=== PATIENT | female | born 1970 | race Caucasian/White ===

== ENCOUNTER 2020-09-25 07:47 | Outpatient (REF) | payer OTHER, SELFPAY ==
[2020-09-25 08:25] LABS: COVID-19 Test Negative (Negative); IDNOW Serial# 55D5AD1C
== END 2020-09-25 07:48 | disposition home or self-care (01) ==
LOC: HO.EMPCOV 07:47
PROVIDERS: PCP Internal Medicine; Visit Provider Internal Medicine
DX: Z20.828 Contact with and (suspected) exposure to other viral communicable diseases (principal)
CPT/HCPCS: 87635; C9803

== ENCOUNTER 2021-01-06 12:33 | Outpatient (REF) | payer MEDICAID, SELFPAY ==
[2021-01-06 13:54] LABS: MANUAL DIFF FLAG NO
[2021-01-06 14:03] LABS: Basophils Percent Auto 0.2 % (0-2); Eosinophils Absolute Auto 0.1 X10*3/uL (0.0-0.4); Eosinophils Percent Auto 1.1 % (0-4); Hematocrit 39.7 % (37-47); Hemoglobin 13.2 g/dl (12.0-16.0); Imm Gran Abs Auto 0.01 X10*3/uL (0.00-0.03); Imm Gran Pct Auto 0.2 % (0.0-0.4); Lymphocytes Absolute Auto 2.2 X10*3/uL (1.2-4.9); Lymphocytes Percent Auto 39.6 % (20-40); Mean Corpuscular HGB Conc 33.2 g/dl (31.0-35.0); Mean Corpuscular Hemoglobin 30.3 pg (27.0-33.0); Mean Corpuscular Volume 91.3 fL (80-98); Mean Platelet Volume 9.7 fL (9.4-12.3); Monocytes Absolute Auto 0.4 X10*3/uL (0.1-1.2); Monocytes Percent Auto 7.5 % (2-11); Neutrophils Absolute Auto 2.9 X10*3/uL (2.0-8.3); Neutrophils Percent Auto 51.4 % (45-73); Platelet Count 191 X10*3/uL (160-400); Red Blood Count 4.35 X10*6/uL (4.20-5.50); Red Cell Distribution Width 13.7 % (11.0-16.0); White Blood Count 5.6 X10*3/uL (4.8-10.8)
[2021-01-06 14:37] LABS: Alanine Aminotransferase 16 U/L (0-31); Albumin Level 4.2 g/dL (3.5-5.0); Alkaline Phosphatase 70 U/L (39-117); Anion Gap 12 (12-20); Aspartate Amino Transferase 25 U/L (5-31); Bilirubin Total 0.3 mg/dL (0.0-1.0); Blood Urea Nitrogen 11 mg/dL (9-16); Calcium 8.8 mg/dL (8.4-10.2); Carbon Dioxide 27 mmol/L (22-29); Chloride 103 mmol/L (96-108); Estimated Glomerular Filt Rate > 60; Glucose Random 74 mg/dL (60-115); Potassium 3.9 mmol/L (3.3-5.1); Sodium 138 mmol/L (135-145); Total Protein 6.4 g/dL (6.5-8.0)
[2021-01-06 15:00] LABS: Free T4 (Free Thyroxine) 1.03 ng/dL (0.71-1.85); Thyroid Stimulating Hormone 0.88 uIU/mL (0.32-4.0)
[2021-01-07 05:06] LABS: Thyroid Peroxidase Antibodies 1 IU/mL (<9)
== END 2021-01-06 12:34 | disposition home or self-care (01) ==
LOC: HO.10HDL 12:33
PROVIDERS: Visit Provider Internal Medicine
DX: E05.00 Thyrotoxicosis with diffuse goiter without thyrotoxic crisis or storm (principal); R51.9 Headache, unspecified; Q28.2 Arteriovenous malformation of cerebral vessels
CPT/HCPCS: 36415; 80053; 84439; 84443; 85025; 86376

== ENCOUNTER 2021-06-24 10:32 | Outpatient (REF) | payer MEDICAID, SELFPAY ==
[2021-06-24 13:46] LABS: Alanine Aminotransferase 14 U/L (0-31); Albumin Level 4.1 g/dL (3.5-5.0); Alkaline Phosphatase 56 U/L (39-117); Anion Gap 13 (12-20); Aspartate Amino Transferase 28 U/L (5-31); Bilirubin Total 0.5 mg/dL (0.0-1.0); Blood Urea Nitrogen 7 mg/dL (9-16); Calcium 9.3 mg/dL (8.4-10.2); Carbon Dioxide 28 mmol/L (22-29); Chloride 101 mmol/L (96-108); Estimated Glomerular Filt Rate > 60; Glucose Random 118 mg/dL (60-115); Potassium 4.4 mmol/L (3.3-5.1); Sodium 138 mmol/L (135-145); Total Protein 6.3 g/dL (6.5-8.0)
[2021-06-24 14:10] LABS: Free T4 (Free Thyroxine) 1.13 ng/dL (0.71-1.85); Thyroid Stimulating Hormone 1.16 uIU/mL (0.32-4.0); Vitamin D 25-OH Total 65.3 ng/mL (>30)
== END 2021-06-24 10:33 | disposition home or self-care (01) ==
LOC: HO.10HDL 10:32
PROVIDERS: PCP Internal Medicine; Visit Provider Internal Medicine
DX: G43.909 Migraine, unspecified, not intractable, without status migrainosus (principal); E55.9 Vitamin D deficiency, unspecified; Z86.39 Personal history of other endocrine, nutritional and metabolic disease
CPT/HCPCS: 36415; 80053; 82306; 84439; 84443

== ENCOUNTER 2022-03-02 12:39 | Outpatient (REF) | payer MEDICAID, SELFPAY ==
[2022-03-02 13:25] LABS: MANUAL DIFF FLAG NO
[2022-03-02 13:33] LABS: Basophils Percent Auto 0.2 % (0-2); Eosinophils Absolute Auto 0.1 X10*3/uL (0.0-0.4); Eosinophils Percent Auto 1.1 % (0-4); Hematocrit 39.4 % (37.0-47.0); Hemoglobin 13.2 g/dl (12.0-16.0); Imm Gran Abs Auto 0.01 X10*3/uL (0.00-0.03); Imm Gran Pct Auto 0.2 % (0.0-0.4); Lymphocytes Absolute Auto 1.2 X10*3/uL (1.2-4.9); Lymphocytes Percent Auto 27.2 % (20-40); Mean Corpuscular HGB Conc 33.5 g/dl (31.0-35.0); Mean Corpuscular Volume 89.5 fL (80.0-98.0); Mean Platelet Volume 9.3 fL (9.4-12.3); Monocytes Absolute Auto 0.5 X10*3/uL (0.1-1.2); Monocytes Percent Auto 10.4 % (2-11); Neutrophils Absolute Auto 2.7 x10*3/uL (2.0-8.3); Neutrophils Percent Auto 60.9 % (45-73); Platelet Count 172 X10*3/uL (160-400); Red Cell Distribution Width 13.3 % (11.0-16.0); White Blood Count 4.4 X10*3/uL (4.8-10.8)
[2022-03-02 13:58] LABS: Alanine Aminotransferase 10 U/L (0-31); Albumin Level 4.2 g/dL (3.5-5.0); Alkaline Phosphatase 55 U/L (39-117); Anion Gap 11 (12-20); Aspartate Amino Transferase 23 U/L (5-31); Bilirubin Total 0.2 mg/dL (0.0-1.0); Blood Urea Nitrogen 6 mg/dL (9-16); Calcium 9.3 mg/dL (8.4-10.2); Carbon Dioxide 29 mmol/L (22-29); Chloride 102 mmol/L (96-108); Cholesterol 186 mg/dL; Estimated Glomerular Filt Rate > 60; Glucose Random 112 mg/dL (60-115); Sodium 138 mmol/L (135-145); Total Protein 6.6 g/dL (6.5-8.0)
[2022-03-02 14:02] LABS: Free T4 (Free Thyroxine) 1.26 ng/dL (0.71-1.85); Thyroid Stimulating Hormone 1.34 uIU/mL (0.32-4.0)
== END 2022-03-02 12:40 | disposition home or self-care (01) ==
LOC: HO.10HDL 12:39
PROVIDERS: PCP Internal Medicine; Visit Provider Internal Medicine
DX: Z00.00 Encounter for general adult medical examination without abnormal findings (principal); E05.00 Thyrotoxicosis with diffuse goiter without thyrotoxic crisis or storm
CPT/HCPCS: 36415; 80053; 82465; 84439; 84443; 85025

== ENCOUNTER 2023-01-11 07:00 | Outpatient (REF) | payer MEDICAID, SELFPAY ==
[2023-01-11 07:10] LABS: MANUAL DIFF FLAG NO
[2023-01-11 07:34] LABS: Basophils Percent Auto 0.1 % (0-2); Eosinophils Absolute Auto 0.1 X10*3/uL (0.0-0.4); Eosinophils Percent Auto 0.9 % (0-4); Hematocrit 39.6 % (37.0-47.0); Hemoglobin 13.6 g/dl (12.0-16.0); Imm Gran Abs Auto 0.01 X10*3/uL (0.00-0.03); Imm Gran Pct Auto 0.1 % (0.0-0.4); Lymphocytes Absolute Auto 2.5 X10*3/uL (1.2-4.9); Lymphocytes Percent Auto 36.8 % (20-40); Mean Corpuscular HGB Conc 34.3 g/dl (31.0-35.0); Mean Corpuscular Hemoglobin 30.6 pg (27.0-33.0); Mean Corpuscular Volume 89.2 fL (80.0-98.0); Mean Platelet Volume 9.7 fL (9.4-12.3); Monocytes Absolute Auto 0.5 X10*3/uL (0.1-1.2); Monocytes Percent Auto 7.5 % (2-11); Neutrophils Absolute Auto 3.7 x10*3/uL (2.0-8.3); Neutrophils Percent Auto 54.6 % (45-73); Platelet Count 187 X10*3/uL (160-400); Red Blood Count 4.44 X10*6/uL (4.20-5.50); Red Cell Distribution Width 13.5 % (11.0-16.0); White Blood Count 6.8 X10*3/uL (4.8-10.8)
[2023-01-11 08:08] LABS: Alanine Aminotransferase 18 U/L (0-31); Albumin Level 4.4 g/dL (3.5-5.0); Alkaline Phosphatase 51 U/L (39-117); Anion Gap 11 (12-20); Aspartate Amino Transferase 29 U/L (5-31); Bilirubin Total 0.6 mg/dL (0.0-1.0); Blood Urea Nitrogen 11 mg/dL (9-16); Calcium 9.4 mg/dL (8.4-10.2); Carbon Dioxide 30 mmol/L (22-29); Chloride 104 mmol/L (96-108); Cholesterol 235 mg/dL; Estimated Glomerular Filt Rate > 60; Glucose Fasting 92 mg/dL (60-99); HDL Cholesterol 50 mg/dL; LDL Cholesterol Calculated 171 mg/dl; Potassium 4.2 mmol/L (3.3-5.1); Sodium 141 mmol/L (135-145); Total Protein 6.5 g/dL (6.5-8.0); Triglycerides 72 mg/dL
== END 2023-01-11 07:01 | disposition home or self-care (01) ==
LOC: HO.LAB 07:00
PROVIDERS: PCP Internal Medicine; Visit Provider Internal Medicine
DX: Z00.00 Encounter for general adult medical examination without abnormal findings (principal)
CPT/HCPCS: 36415; 80053; 80061; 85025

== ENCOUNTER 2023-01-31 20:55 | Outpatient (REF) | payer MEDICAID, SELFPAY ==
[2023-01-31 21:21] LABS: COVID-19 Test Negative (Negative); IDNOW Serial# BCCEAD1C
== END 2023-01-31 20:56 | disposition home or self-care (01) ==
LOC: HO.LAB 20:55
PROVIDERS: PCP Internal Medicine; Visit Provider Internal Medicine
DX: Z20.822 Contact with and (suspected) exposure to COVID-19 (principal)
CPT/HCPCS: 87635

== ENCOUNTER 2025-04-30 08:18 | Outpatient (AMB) | payer OTHER, SELFPAY ==
--- NOTE | 2025-04-30 08:22 | A.OFFPC_ITS ---
Vital Signs 04/30/25 08:23 Height 5 ft 5 in Weight 64.41 kg BMI 23.6 BP 112/72 Respiration 14 Pulse 73 Pulse Source Pulse Oximeter Temp 98.0 F Temp Source Temporal Artery Scan Pulse Oximetry (%) 97 Oxygen Delivery Method Room Air Intake Visit Reasons: physical Accompanied by: Self / Same As Patient Allergies No Known Allergies Allergy (Unverified 04/30/25 08:24) Medication List - Last Reconciled 04/30/25 by MAC Donnelly hydroxyzine HCl 25 mg PO BID PRN nicotine 1 patch transdermal DAILY nicotine 1 patch transdermal Q24H HPI HPI Comments History of Present Illness Details 55-year-old female with history of alcoh ol use disorder, anxiety, goiter, AVM who is a current everyday smoker presents to the office today for annual physical exam, for management of chronic conditions, and to establish care. Joeehuh-MKY-1 score 6, consistent with mild anxiety. She does use hydroxyzine as needed. She does have social supports. Would consider therapy. No significant depressive symptoms, PHQ-9 score 2. Much of her anxiety stems from the suicide of her brother AVM brain-s/p stereotactic LINAC radiosurgery for complex avm with application of stereotactic headframe in in 2020, had been following with Dr. Ferrell in Neurology and [place] [facility] She has been discharge from [facility] and recommended for 3 repeat MRI of the brain. Does report occasional headaches Goiter/thyroid nodule-nuclear med thyroid update scan showed evidence of Graves disease/hyperthyroidism with homogeneous uptake. Despite this remains euthyroid. Denies any compressive symptoms Cigarette smoking-continue smoking about 10 cigarettes on a daily basis. She is interested in quitting Alcohol use disorder-in remission, last alcohol consumption 6 years ago. Does attend and has good social supports. No other substance use. Past medical, social, surgical, family history reviewed Concerns: New nevus on right cheek that appeared 60 years ago and has been enlarging Health maintenance: Overdue for screening mammogram Overdue for colonoscopy Overdue for Pap smear ROS: General: No fevers, malaise, unintentional weight loss HEENT: No blurred vision, diplopia. No sore throat, nasal congestion, rhinorrhea, sinus pain, ear pain Neck - no adenopathy. +goiter Cardiovascular: No chest pain, palpitations, or leg edema Respiratory: No shortness of breath, wheezing, cough GI: No abdominal pain, nausea, vomiting, diarrhea, constipation, melena, hematochezia : No dysuria, hematuria, increased urinary frequency, decreased urinary output MSK: No myalgia, back pain, arthralgias Neuro: +headache. weakness, paresthesias Psych: +anxiety. No AH/VH. No SI/HI Skin: No rashes or lesions EXAM: Constitutional - Awake and Alert, No apparent distress Eyes - PERRLA, EOMI. Anicteric Nose- septum midline, nares clear, no sinus tenderness Mouth/throat- mucosa moist, tongue and uvula midline, no erythema/edema or tonsillar adenopathy. Neck-trachea midline, asymmetric thyroid R>L, witih palpable nodule upper right lobe Cardiovascular - S1S2, RRR, No edema Respiratory - Normal lung expansion, Normal respiratory effort, No respiratory distress, CTA bilaterally Gastrointestinal - NT / ND; +BS; No rebound or guarding - No CVA tenderness Extremities - no calf tenderness bilaterally, no swelling Musculoskeletal - Normal inspection, normal ROM Skin - Warm/Dry Neurological - Alert & oriented x3, CN II-XII in tact, 5/5 strength BUE and BLE Psychological - Appropriate affect PFSH Medical History (Updated 04/30/25 @ 09:07 by MAC Donnelly) Cigarette smoker Alcohol use disorder in remission Anxiety Status post radiation therapy Headache AVM (arteriovenous malformation) brain Goiter Surgical History (Updated 04/30/25 @ 08:41 by MAC Donnelly) S/P tonsillectomy H/O lumbar discectomy S/P radiation therapy > 12 wks ago Family History (Updated 04/30/25 @ 08:48 by MAC Donnelly) Mother CAD (coronary artery disease) of artery bypass graft Arterial occlusive disease Diabetes Sister Diabetes Father Metastatic cancer Questionnaire PHQ-9 Over the last 2 weeks, how often have you been bothered by any of the following problems? 1. Little interest or pleasure in doing things: more than half the days 2. Feeling down, depressed, or hopeless: not at all 3. Trouble falling or staying asleep, or sleeping too much: not at all 4. Feeling tired or having little energy: more than half the days 5. Poor appetite or overeating: not at all 6. Feeling bad about yourself - or that you are a failure or have let yourself or your family down: not at all 7. Trouble concentrating on things, such as reading the newspaper or watching television: not at all 8. Moving or speaking so slowly that other people could have noticed. Or the opposite - being so fidgety or restless that you have been moving around a lot more than usual: not at all 9. Thoughts that you would be better off or of hurting yourself in some way: not at all Total score: 4 Depression Screening Done: Yes 67874 - PHQ-9 Billing: Yes Source: Developed by Drs. Jarod Barrera, Miranda Boudreaux, Daquan Cruz and colleagues, with an educational neeta from [employer]. Thrive Questionnaire Date Thrive assessed: 04/30/25 I am a: Patient What is your living situation today?: I have a steady place to live Within the past 12 months, did the food you bought not last and you didn't have the money to get more?: Never true Within the past 12 months, did you worry whether your food would run out before you got money to buy more?: Never true Do you have trouble paying for medicines?: No Do you have trouble getting transportation to medical appointments?: No Do you have trouble paying your heating and electricity bill?: No Do you have trouble taking care of your child, family member or friend?: No Do you have trouble with day-to-day activities such as bathing, preparing meals, shopping, managing finances, etc.?: No Are you currently unemployed and looking for a job?: No Are you interested in more education?: No Please select the resources that you would like help with: None THRIVE Score: 0 NEIL-7 AMB Questionnaire NEIL-7 Date NEIL - 7 assessed: 04/30/25 Feeling nervous, anxious, or on edge: 1 = Several days Not being able to stop or control worryin = Several days Worrying too much about different things: 1 = Several days Trouble relaxin = Several days Being so restless that it is hard to sit still: 0 = Not at all Becoming easily annoyed or irritable: 1 = Several days Feeling afraid as if something awful might happen: 1 = Several days Total NEIL-7 score (0-4 normal; 5-9 mild; 10-14 moderate; 15-21 severe): 6 Source: Developed by Drs. Jarod Barrera, Miranda Boudreaux, Daquan Cruz and colleagues, with an educational neeta from [employer]. Physical exam (Primary Care) Vital Signs: Last Vital Signs Temp 98.0 F 04/30/25 08:23 Pulse 73 04/30/25 08:23 Resp 14 04/30/25 08:23 BP 112/72 04/30/25 08:23 Pulse Ox 97 04/30/25 08:23 Oxygen Delivery Method Room Air 04/30/25 08:23 BMI result Body Mass Index 23.6 PHQ-9: PHQ-9 Score PHQ-9: Total score 4 04/30/25 10:17 Thrive Assessment: Date of Thrive Assessment Date Thrive assessed 04/30/25 04/30/25 09:04 Coding Level of Care Code New Pt Level 4 (25169) New Pt Prev Care 40-64y(13276) Diagnoses Routine medical exam Z00.00 Goiter E04.9 AVM (arteriovenous malformation) brain Q28.2 Alcohol use disorder in remission F10.91 Cigarette smoker F17.210 Atypical nevus D22.9 Thyroid nodule E04.1 Additional Codes PHQ-9 - 07046 - PHQ-9 Billing: Yes ([id number]) Assessment & Plan Assessment & Plan (1) Routine medical exam: Code(s): Z00.00 - Encounter for general adult medical examination without abnormal findings Category: Medical Plan: Routine annual exam and 55-year-old female. Plan as below (2) Goiter: Code(s): E04.9 - Nontoxic goiter, unspecified Category: Medical Plan: Ultrasound of the thyroid ordered. Reviewed thyroid uptake scan from 2021. Will check TSH with reflex free T4 (3) AVM (arteriovenous malformation) brain: Comment: [facility] Code(s): Q28.2 - Arteriovenous malformation of cerebral vessels Category: Medical Plan: MRI of the brain with/without contrast for surveillance as recommended by [facility] Reviewed prior MRI brain with/without contrast from 02/20[facility] at [facility]. Reviewed notes from [facility] [place] (4) Alcohol use disorder in remission: Code(s): F10.91 - Alcohol use, unspecified, in remission Category: Medical Plan: Commended on ongoing sobriety. Continue with social supports and abstinence (5) Cigarette smoker: Code(s): F17.210 - Nicotine dependence, cigarettes, uncomplicated Category: Social Hx Plan: 15 pack-year history. No lung cancer screening indicated at this time. Smoking cessation strongly advised. Nicotine patches (6) Atypical nevus: Code(s): D22.9 - Melanocytic nevi, unspecified Plan: Referral to Dermatology (7) Thyroid nodule: Code(s): E04.1 - Nontoxic single thyroid nodule Category: Medical Plan: Ultrasound thyroid, TSH ordered Plan Routine screening labs as ordered below Screening mammogram, colonoscopy, Pap smear ordered Continue following for annual skin exams and use sun protection Annual eye exams Annual dental exams Wear seat belt in car Recommend regular exercise and healthy diet Orders: Orders Complete Blood Count Auto Diff Today Z00.00 - Encounter for general adult medic al examination without abnormal findings Liver Panel Today Z00.00 - Encounter for general adult medical examination without abnormal findings TSH reflex Free T4 Today Z00.00 - Encounter for general adult medical examination without abnormal findings MM tomosynthesis screening BI Today Z12.31 - Encounter for screening mammogram for malignant neoplasm of breast US thyroid Today E04.1 - Nontoxic single thyroid nodule, E04.9 - Nontoxic goiter, unspecified MR head/brain wo/w con Today Q28.2 - Arteriovenous malformation of cerebral vessels Basic Metabolic Panel Today Z00.00 - Encounter for general adult medical examination without abnormal findings Hemoglobin A1c Today Z00.00 - Encounter for general adult medical examination without abnormal findings Lipid Panel Today Z00.00 - Encounter for general adult medical examination without abnormal findings Vitamin D 25-OH Total Today Z00.00 - Encounter for general adult medical examination without abnormal findings Referrals FAMILY CONSUMER SCIENCE FCS TEACHER Referral C53.9 - Malignant neoplasm of cervix uteri, unspecified Dermatology Referral D22.9 - Melanocytic nevi, unspecified Gastroenterology Referral D22.9 - Melanocytic nevi, unspecified, Z12.11 - Encounter for screening for malignant neoplasm of colon Medications: New nicotine 1 patch transdermal DAILY 28 ea 0RF nicotine 1 patch transdermal Q24H 14 ea 0RF hydroxyzine HCl 25 mg PO BID PRN 180 tabs 1RF anxiety Patient Instructions: anxiety- joan
[2025-04-30 08:23] VITALS: BP 112/72; PULSE 73; RESP 14; TEMP 36.7; O2SAT 97; BMI 23.6
--- OUTSIDE RECORDS SUMMARY | 2025-04-30 08:31 | XMS_ITS | Clinical Summary ---
Author Organization [employer] Address [address] [place] [address] [address] [place] [address] Care Team Providers Care Field Service Manager Name Role Phone Unavailable Primary Care Provider Unavailabl e Allergies No known active allergies Medications hydrOXYzine HCl (Atarax) 25 MG tablet Take 25 mg by mouth 2 times daily. Active topiramate (Topamax Sprinkle) 25 MG capsule Take 25 mg by mouth 2 times daily. Active Social History Tobacco Use Types Packs/Day Years Used Date Smoking Tobacco: Every Day Cigarettes Smokeless Tobacco: Never Tobacco Cessation:Ready to Q uit: Not Asked; Counseling Given: Not Answered Comments Unknown Sex and Gender Information Value Date Recorded Sex Assigned at Female 09/12/2022 10:36 AM EDT Legal Sex Female 10:36 AM EDT Gender Identity Female 02/06/2024 1:19 PM EDT Sexual Orientation Straight 09/12/2022 10 :36 AM EDT Last Filed Vital Signs Vital Sign Reading Time Taken Comments Blood Pressure 133/69 02/21/2024 3:12 PM EDT Pulse 68 02/21/2024 3:12 PM EDT Temperature - - Respiratory Rate - - Oxygen Saturation - - Inhaled Oxygen Concentration - - Weight - - Height - - Body Mass Index - - Plan of Treatment Health Maintenance Due Date Last Done Comments CT Colonography 1972 Colonoscopy 1972 Colorectal Cancer Screening 1972 Depression Screening 1972 FIT DNA/Cologuard 1972 FIT 1972 FOBT 1972 HIV Screening 1972 SDOH Screening 1972 Sigmoidoscopy 1972 Disability Screening 1972 Alcohol/Substance Use Screening 1984 Hepatitis C Screening 1990 DTaP/Tdap/Td Vaccines (1 - Tdap) 1991 Hepatitis B Vaccines (1 of 3 - 19+ 3-dose series) 1991 Pneumococcal Vaccine: 50+ Years (1 of 2 - PCV) 1991 Pap Smear 1993 Cervical Cancer Screening 2002 HPV/Cotest 2002 Mammogram 2012 Zoster Vaccines (1 of 2) 2022 Dental X-Ray: Full Mouth 10/25/2022 10/24/2019 COVID-19 Vaccine ( - 2023-2 5 season) 2024 Dental Oral Exam 08/23/2024 02/21/2024, 10/24/2019 Dental Prophylaxis 08/23/2024 02/21/2024, 12/10/2019 Tobacco Screening 02/20/2025 02/21/2024 Dental X-Ray: Bitewings 02/21/2025 02/21/20 24, 10/24/2019 Influenza Vaccine (Season Ended) 2025 RSV Patients and Patients Aged 60 years or older (1 - 1-dose 75+ series) 2047 HIB Vaccines Aged Out No longer eligi ble based on patient's age to complete this topic HPV Vaccines Aged Out No longer eligi ble based on patient's age to complete this topic Hepatitis A Vaccines Aged Out No long er eligible based on patient's age to complete this topic IPV Vaccines Aged Out No longer eligi ble based on patient's age to complete this topic Meningococcal B Vaccine Aged Out No l onger eligible based on patient's age to complete this topic Meningococcal Vaccine Aged Out No serge neel eligible based on patient's age to complete this topic RSV under 20 months Aged Out No longe r eligible based on patient's age to complete this topic Rotavirus Vaccines Aged Out No longer eligible based on patient's age to complete this topic Procedures Procedure Name Priority Date/Time Associated Diagnosis Comments PROPHYLAXIS - ADULT Routine 02/21/2024 3 :00 PM EDT BITEWINGS - 4 RADIOGRAPHIC IMAGES Routine 02/21/2024 3:00 PM EDT PERIODIC ORAL EVALUATION - ESTABLISHED PATIENT Routine 02/21/2024 3:00 PM EDT INTRAORAL - COMPLETE SERIES OF RADIOGRAPHIC IMAGES Routine 10/24/2019 12:00 AM EST from Last 3 Months or Most Recently Relevant to Health Maintenance Insurance [address] [place] [id number] DENTAL - [facility] [address] [place] [phone] [place] [id number] [address] [place] [address] [place] [phone]
== END 2025-04-30 09:03 | disposition home or self-care (01) ==
LOC: HO.HMCHD 08:19
PROVIDERS: PCP Internal Medicine; Visit Provider Physician Assistant
DX: Z00.00 Encounter for general adult medical examination without abnormal findings (principal); E04.9 Nontoxic goiter, unspecified; Q28.2 Arteriovenous malformation of cerebral vessels; F10.91 Alcohol use, unspecified, in remission; F17.210 Nicotine dependence, cigarettes, uncomplicated; D22.9 Melanocytic nevi, unspecified; E04.1 Nontoxic single thyroid nodule

== ENCOUNTER → 2025-04-30 08:18 | Outpatient (BNVA) | payer OTHER, SELFPAY | PROVIDERS: PCP Internal Medicine; Visit Provider Physician Assistant | DX: Z00.00 Encounter for general adult medical examination without abnormal findings (principal); E04.1 Nontoxic single thyroid nodule; F10.91 Alcohol use, unspecified, in remission; D22.9 Melanocytic nevi, unspecified; F41.9 Anxiety disorder, unspecified; F17.210 Nicotine dependence, cigarettes, uncomplicated; Q28.2 Arteriovenous malformation of cerebral vessels; Z13.31 Encounter for screening for depression; Z13.30 Encounter for screening examination for mental health and behavioral disorders, unspecified | CPT/HCPCS: 96127 ==

== ENCOUNTER 2025-04-30 09:06 | Outpatient (REF) | payer OTHER, SELFPAY ==
[2025-04-30 09:55] LABS: MANUAL DIFF FLAG NO
[2025-04-30 10:00] LABS: Basophils Percent Auto 0.2 % (0-2); Eosinophils Absolute Auto 0.1 X10*3/uL (0.0-0.4); Eosinophils Percent Auto 1.1 % (0-4); Hematocrit 43.3 % (37.0-47.0); Hemoglobin 14.5 g/dl (12.0-16.0); Imm Gran Abs Auto 0.02 X10*3/uL (0.00-0.03); Imm Gran Pct Auto 0.3 % (0.0-0.4); Lymphocytes Absolute Auto 2.3 X10*3/uL (1.2-4.9); Lymphocytes Percent Auto 36.5 % (20-40); Mean Corpuscular HGB Conc 33.5 g/dl (31.0-35.0); Mean Corpuscular Hemoglobin 30.7 pg (27.0-33.0); Mean Corpuscular Volume 91.7 fL (80.0-98.0); Mean Platelet Volume 10.1 fL (9.4-12.3); Monocytes Absolute Auto 0.4 X10*3/uL (0.1-1.2); Monocytes Percent Auto 6.6 % (2-11); Neutrophils Absolute Auto 3.5 x10*3/uL (2.0-8.3); Neutrophils Percent Auto 55.3 % (45-73); Platelet Count 200 X10*3/uL (160-400); Red Blood Count 4.72 X10*6/uL (4.20-5.50); Red Cell Distribution Width 13.5 % (11.0-16.0); White Blood Count 6.3 X10*3/uL (4.8-10.8)
[2025-04-30 10:16] LABS: Estimated Average Glucose 108 mg/dL; Hemoglobin A1c % 5.4 % (<6.0)
[2025-04-30 10:30] LABS: Alanine Aminotransferase 26 U/L (0-31); Albumin Level 4.7 g/dL (3.5-5.0); Alkaline Phosphatase 57 U/L (39-117); Anion Gap 10 (12-20); Aspartate Amino Transferase 38 U/L (5-31); Bilirubin Direct 0.2 mg/dL (0.0-0.5); Bilirubin Total 0.6 mg/dL (0.0-1.0); Blood Urea Nitrogen 14 mg/dL (9-16); Calcium 9.7 mg/dL (8.4-10.2); Carbon Dioxide 29 mmol/L (22-29); Chloride 106 mmol/L (96-108); Cholesterol 223 mg/dL (<200); Estimated Glomerular Filt Rate > 60; Glucose Random 102 mg/dL (60-115); HDL Cholesterol 46 mg/dL (>40); LDL Cholesterol Calculated 156 mg/dL (<100); Potassium 4.3 mmol/L (3.3-5.1); Sodium 141 mmol/L (135-145); Total Protein 7.3 g/dL (6.5-8.0); Triglycerides 109 mg/dL (<150)
[2025-04-30 10:51] LABS: TSH reflex Free T4 1.03 uIU/mL (0.32-4.0); Vitamin D 25-OH Total 47.3 ng/mL (>30)
== END 2025-04-30 09:07 | disposition home or self-care (01) ==
LOC: HO.10HDL 09:06
PROVIDERS: Visit Provider Physician Assistant
DX: Z00.00 Encounter for general adult medical examination without abnormal findings (principal); Z13.0 Encounter for screening for diseases of the blood and blood-forming organs and certain disorders involving the immune mechanism; Z13.29 Encounter for screening for other suspected endocrine disorder; Z13.1 Encounter for screening for diabetes mellitus; Z13.220 Encounter for screening for lipoid disorders
CPT/HCPCS: 36415; 80048; 80061; 80076; 82306; 83036; 84443; 85025

== ENCOUNTER 2025-05-19 11:56 | Outpatient (REF) | payer OTHER, SELFPAY ==
--- OUTSIDE RECORDS SUMMARY | 2025-05-19 12:48 | XMS_ITS | Clinical Summary ---
Author Organization [facility] Address [address] [place] [address] 7[address] [place] [address] Care Team Providers Care Armoured Corps Officer Name Role Phone Unavailable Primary Care Provider [...] Bitewings 02/21/2025 02/21/20 24, 10/24/2019 Influenza Vaccine (#1) 2025 RSV Patients and Patients Aged 60 [...] Recently Relevant to Health Maintenance Insurance [address] [place] [id number] DENTAL - [facility] [address] [place] [phone] [place] [address] [address] [address] [place] [address] [place] [phone]
== END 2025-05-19 11:57 | disposition home or self-care (01) ==
LOC: HO.MAMMO 11:56
PROVIDERS: PCP Physician Assistant; Visit Provider Physician Assistant
DX: Z12.31 Encounter for screening mammogram for malignant neoplasm of breast (principal)
CPT/HCPCS: 77063; 77067

== ENCOUNTER → 2025-05-19 12:00 | Outpatient (BNV) | payer OTHER, SELFPAY | PROVIDERS: PCP Physician Assistant; Visit Provider Radiology Body Imaging | DX: Z12.31 Encounter for screening mammogram for malignant neoplasm of breast (principal) | CPT/HCPCS: 77063; 77067 ==

== ENCOUNTER 2025-05-28 15:48 | Outpatient (REF) | payer OTHER, SELFPAY ==
--- NOTE | ~2025-05-28 | MR_ITS ---
EXAMINATION: MR ANGIOGRAPHY BRAIN WITHOUT AND WITH CONTRAST CLINICAL INFORMATION: Arteriovenous malformation of cerebral vessels; right frontoparietal AVM status post LINAC stereotactic radiosurgery in 2020. COMPARISON: Outside enhanced brain MRI from [facility] 03/02/2022. CT angiography head from [facility] 03/10/2024. TECHNIQUE: 3-D [id number] imaging and postcontrast imaging of the major arterial intracranial vasculature was performed, with postprocessing multiplanar reformatted and MIPPED imaging. Examination performed on 1.5 Micheline Siemens high-field unit. FINDINGS: The previously identified small AVM at the right lateral frontoparietal junction is again identified, however nearly imperceptible as compared with the prior MRI examination. The nidus currently measures 2 x 2 mm, previously measuring 3 x 5 mm (series 32, image 206). There are 2 mildly prominent associated cortical draining veins immediately adjacent to this region. These are less prominent than seen on the previous exam. There is no additional aneurysm or AVM identified. Normal flow related enhancement is present in the anterior and posterior circulation. There is no significant stenosis, flow gap, occlusion, or evidence of dissection. The posterior communicating arteries are present and patent bilaterally. Anterior communicating artery is normal. The right vertebral artery is dominant. The left vertebral artery appears to terminate as a PICA branch. The major cortical and dural venous sinuses are patent. MR/MR angio head wo/w con IMPRESSION: 1. Redemonstration of a tiny AVM in the right lateral frontoparietal junction, with nidus currently measuring approximately 2 x 2 mm, previously 3 x 5 mm in 2021. There are 2 associated mildly prominent draining cortical veins again noted. 2. There is no evidence of additional aneurysm or AVM. 3. The remainder of the examination is normal, with normal anatomical variation as discussed. Electronically signed by: Jose Carlos Salinas MD 05/30/2025 02:51 PM EDT
--- OUTSIDE RECORDS SUMMARY | 2025-05-28 15:50 | XMS_ITS | Clinical Summary ---
Author Organization [employer] Address [address] [place] [address] [address] [place] [address] Care Team Providers Care Computer Software Engineer Name Role Phone Unavailable Primary Care Provider [...] Recently Relevant to Health Maintenance Insurance [address] [place] [id number] DENTAL - [facility] [address] [place] [phone] [place] [phone] [address] [place] [address] [place] [phone]
== END 2025-05-28 15:49 | disposition home or self-care (01) ==
LOC: HO.MRI 15:48
PROVIDERS: PCP Physician Assistant; Visit Provider Physician Assistant
DX: Q28.2 Arteriovenous malformation of cerebral vessels (principal)
CPT/HCPCS: 70546; A9585

== ENCOUNTER → 2025-05-28 15:56 | Outpatient (BNV) | payer OTHER, SELFPAY | PROVIDERS: PCP Physician Assistant; Visit Provider Radiology Diagnostic Radiology | DX: Q28.2 Arteriovenous malformation of cerebral vessels (principal) | CPT/HCPCS: 70546 ==

== ENCOUNTER 2025-05-30 12:49 | Outpatient (REF) | payer OTHER, SELFPAY ==
--- OUTSIDE RECORDS SUMMARY | 2025-05-30 12:53 | XMS_ITS | Clinical Summary ---
Author Organization [facility] Address [address] [place] [address] 7t [place] [address] Care Team Providers Care Liner Worker Name Role Phone Unavailable Primary Care Provider [...] Recently Relevant to Health Maintenance Insurance [address] [place] [phone] DENTAL - [facility] [address] [place] [phone] [place] [address] [address] [place] [address] [place] [phone]
--- OUTSIDE RECORDS SUMMARY | 2025-05-30 12:53 | XMS_ITS | Encounter Summary ---
Author Organization [facility] Address [address] [place] [address] Phone Care Team Providers Care Food Product Inspector Name Role Phone Jm Heredia MD Primary Care Provider Encounter Details Date Type Department Care Team (Late st Contact Info) Description 12/01/2020 Procedure Pass [facility] [address] [place] [address] Social History Tobacco Use Types Packs/Day Years Used Date Smoking Tobacco: Every Day Cigarettes 0.5 25 Smokeless Tobacco: Never Comments:has patch Alcohol Use Standard Drinks/Week Comments Never 0 (1 standard drink = 0.6 oz pur e alcohol) Comments No Sex and Gender Information Value Date Recorded Sex Assigned at Not on file Legal Sex Female 11:16 AM EST Gender Identity Not on file Sexual Orientation Not on file documented as of this encounter Plan of Treatment Not on file documented as of this encounter Visit Diagnoses Not on filedocumented in this encounter Care Teams Food Product Inspector Relationship Specialty Start Date End Date Jm Heredia MD [address] [place] [address] [place] [address] PCP - General Internal Medicine 10/06/20 documented as of this encounter Additional Source Comments The information contained in this document represents components of the legal health record. It is not the complete legal health record.[facility]
== END 2025-05-30 12:50 | disposition home or self-care (01) ==
LOC: HO.MRI 12:49
PROVIDERS: PCP Physician Assistant; Visit Provider Physician Assistant
DX: Z53.8 Procedure and treatment not carried out for other reasons (principal)
CPT/HCPCS: A9585

== ENCOUNTER 2025-06-05 14:13 | Outpatient (REF) | payer OTHER, SELFPAY ==
--- NOTE | ~2025-06-05 | US_ITS ---
EXAMINATION: US THYROID HISTORY: E04.9 - Nontoxic goiter, unspecified TECHNIQUE: Real-time grayscale ultrasound imaging was performed and images were reviewed. COMPARISON: There are no prior studies available for comparison. FINDINGS: SIZE: The right thyroid lobe measures 4.5 x 1.5 x 1.4 cm. The left thyroid lobe measures 4.8 x 1.5 x 1.4 cm. The isthmus measures 1 mm. FLOW: Flow to the gland is normal. ECHOGENICITY: The echotexture of the gland is homogeneous. NODULES: Subcentimeter nodules are noted bilaterally as described below: Nodule #: 1 Location: Right upper pole measuring 6 x 4 x 6 mm. Shape: Wider than tall (0 points) Margins: Ill-defined (0 points) Echotexture: Indeterminate (1 point) Composition: Mixed (1 point) Calcifications: Comet tail (0 points) Total points: 2 TIRADS: TR2: Not suspicious Nodule #: 2 Location: Midportion of the right thyroid lobe measuring 3 x 4 x 3 mm. Shape: Taller than wide (3 points) Margins: Irregular (2 points) Echotexture: Very hypoechoic (3 points) Composition: Solid (2 points) Calcifications: None (0 points) Total points: 10 TIRADS: TR5: Highly suspicious. Nodule #: 3 Location: Midportion of the left thyroid lobe measuring 3 x 2 x 3 mm. Shape: Wider than tall (0 points) Margins: Ill-defined (0 points) Echotexture: Indeterminate (1 point) Composition: Mixed (1 point) Calcifications: Comet tail (0 points) Total points: 2 TIRADS: TR2: Not suspicious US/US thyroid IMPRESSION: 3 x 4 x 3 mm highly suspicious nodule in the midportion of the right thyroid lobe. Follow-up is recommended to document stability. ACR TI-RADS Guidelines TR1 (0 points): Benign. No follow-up or biopsy required TR2 (2 points): Not Suspicious. No biopsy or follow up indicated TR3 (3 points): Mildly Suspicious. FNA if >= 2.5 cm, Follow if >= 1.5 cm TR4 (4-6 points): Moderately Suspicious. FNA if >= 1.5 cm, Follow if >= 1.0 cm TR5 (>=7 points): Highly Suspicious. FNA if >= 1.0 cm, Follow if >= 0.5 cm Electronically signed by: Jarod Hess MD 06/05/2025 03:12 PM EDT
--- OUTSIDE RECORDS SUMMARY | 2025-06-05 14:16 | XMS_ITS | Encounter Summary ---
Author Organization [facility] Address [address] [place] [address] Phone Care Team Providers Care Loader Operator Name Role Phone Jm Heredia MD Primary Care Provider Encounter Details Date Type Department Care Team (Late st Contact Info) Description 12/01/2020 Procedure Pass [facility] [address] [place] [address] Social History Tobacco Use Types [...] on filedocumented in this encounter Care Teams Loader Operator Relationship Specialty Start Date End Date Jm Heredia MD [address] [place] [address] [place] [address] PCP - General Internal Medicine 10/06/20 documented as of this encounter Additional Source Comments The information contained in this document represents components of the legal health record. It is not the complete legal health record.[facility]
--- OUTSIDE RECORDS SUMMARY | 2025-06-05 14:16 | XMS_ITS | Clinical Summary ---
Author Organization [employer] Address [address] [place] [address] [address] [place] [address] Care Team Providers Care Supervisor Machine Workers Name Role Phone Unavailable Primary Care Provider [...] Recently Relevant to Health Maintenance Insurance [address] [place] [id number] DENTAL - [facility] [address] [place] [phone] [place] [id number] [address] [place] [address] [place] [phone]
== END 2025-06-05 14:14 | disposition home or self-care (01) ==
LOC: HO.US 14:13
PROVIDERS: PCP Physician Assistant; Visit Provider Physician Assistant
DX: E04.9 Nontoxic goiter, unspecified (principal); E04.1 Nontoxic single thyroid nodule
CPT/HCPCS: 76536

== ENCOUNTER → 2025-06-05 14:16 | Outpatient (BNV) | payer OTHER, SELFPAY | PROVIDERS: PCP Physician Assistant; Visit Provider Radiology Diagnostic Radiology | DX: E04.1 Nontoxic single thyroid nodule (principal) | CPT/HCPCS: 76536 ==

== ENCOUNTER 2025-08-11 12:00 | Outpatient (AMB) | payer OTHER, SELFPAY ==
--- NOTE | 2025-08-11 12:02 | A.OFFVIS_ITS ---
Vital Signs 08/11/25 12:03 Height 5 ft 5 in Weight 143 lb BMI 23.8 BP 134/56 L Blood Pressure Location Rt brachial Position Sitting Pulse 66 Pulse Source Pulse Oximeter Pulse Oximetry (%) 100 Oxygen Delivery Method Room Air Intake Visit Reasons: Colonoscopy Screening Intake Note: New pt for initial colo screening. CC: C.O. intermittent episodes of constipation w/o evidence of any rectal bleeding. No additional sx or concerns at this time. Eligibility Services Representative Required: No Accompanied by: Self / Same As Patient Allergies No Known Allergies Allergy (Unverified 08/11/25 12:03) HPI HPI Colonoscopy Screening: Details: 55 year old? female with past medical history of thyroid nodule, brain AVM, tobacco use is here today for pre colonoscopy screening.? Patient was sent to us by her PCP.? This is her first colonoscopy screening.? Patient denies any gastrointestinal symptoms in the past or at present.? However patient does admit occasional constipation depending on what she eats and how much fluid does she drink. Denies melena, hematochezia, unintentional weight loss or ribbon like stools. Denies any personal or family history of gastrointestinal disease, colon polyps, or CRC.? Denies history of difficulty with sedation or anesthesia in the past.? Negative for history of sleep apnea.? Denies any history of cardiac, renal, pulmonary, or hepatic disease.?? No history of infectious? diseases like hepatitis A, B, C, HIV or tuberculosis.? Patient is not on any anticoagulation [facility] Medical History Cigarette smoker Alcohol use disorder in remission Anxiety Status post radiation therapy Headache AVM (arteriovenous malformation) brain Goiter Surgical History S/P tonsillectomy H/O lumbar discectomy S/P radiation therapy > 12 wks ago Family History Mother CAD (coronary artery disease) of artery bypass graft Arterial occlusive disease Diabetes Sister Diabetes Father Metastatic cancer Review of Systems Const Denies weight gain and Denies weight loss ENT Reports no additional complaints, Denies dysphagia and Denies odynophagia Card Reports no additional complaints Resp Reports no additional complaints GI Denies abdominal pain, Denies belching, Denies melena, Denies bloating, Denies change in bowel habits, Denies dysphagia, Denies excessive flatus, Denies dyspepsia, Denies heartburn, Denies diarrhea, Denies loose stools, Denies nausea, Denies odynophagia and Denies vomiting Musc Reports no additional complaints Neuro Reports no additional complaints Psych Reports no additional complaints Endo Reports no additional complaints Physical Exam Vital Signs: Last Vital Signs Pulse 66 08/11/25 12:03 BP 134/56 L 08/11/25 12:03 Pulse Ox 100 08/11/25 12:03 Oxygen Delivery Method Room Air 08/11/25 12:03 BMI result Body Mass Index 23.8 Const General: healthy appearing, no acute distress and well developed Nutritional Appearance: well nourished Orientation/consciousness: patient oriented x3 Resp Effort & Inspection: normal respiratory effort, able to speak in complete sentences, no tracheal deviation and symmetric chest movement Auscultation: clear to auscultation bilaterally Cardio Rate: regular rate GI Inspection: Yes normal to inspection and No distended Palpation (GI): Soft to palpation, not firm, nontender and No hepatosplenomegaly present Auscultation: normal bowel sounds General: Yes no CVA tenderness Back/Spine/Pelvis Back: no CVA tenderness Skin General skin exam: elasticity normal, turgor normal and dry skin Neuro General: patient oriented x3 Psych Appearance: grossly normal Mental Status: mental status grossly normal Assessment & Plan Assessment & Plan (1) Screen for colon cancer: Code(s): Z12.11 - Encounter for screening for malignant neoplasm of colon Plan Patient denies any cardiac or respiratory symptoms.? Occasional constipation depending on diet. Increase fluid intake and activity to promote better bowel motility. Denies any issues with anesthesia in the past.? Denies any history of sleep apnea.? No history infectious diseases in the past or present.? Not on any anticoagulation therapy.? No family or personal history of colon cancer or polyps.? Patient denies melena, hematochezia, unintentional weight loss or ribbon like stools.? Discussed at length the pre-procedure,? prep, diet & medications as well as what to expect prior, during and after the procedure.?? Stressed the importance of good bowel prep.? Recommended the use of Vaseline or Calmoseptine OTC & baby wipes with bowel movements to promote comfort.? ?Patient verbalizes understanding and agrees to plan of care.? She was given the opportunity to ask questions and all questions answered.? We will see her after the procedure.? Orders: Referrals GI Procedure Notification Z12.11 - Encounter for screening for malignant neoplasm of colon Medications: New polyethylene glycol 3350 (Miralax) As directed by gastroenterology department at [facility] 238 grams PO ONCE 238 grams 0RF Z12.11 - Encounter for screening for malignant neoplasm of colon bisacodyl (Dulcolax (bisacodyl)) take 4 tabs at noon the day before your colonoscopy 20 mg (4 x 5 mg) PO ONCE 4 tabs 0RF constipation 1 day Z12.11 - Encounter for screening for malignant n eoplasm of colon Coding Level of Care Code New Pt Level 3 (10897) Diagnoses Screen for colon cancer Z12.11 Time Spent (min) 40 Comment 30 minutes spent with patient and additional 10 minutes spent reviewing her records
[2025-08-11 12:03] VITALS: BP 134/56; PULSE 66; O2SAT 100; BMI 23.8
== END 2025-08-11 12:54 | disposition home or self-care (01) ==
LOC: HO.HGI 12:00
PROVIDERS: PCP Physician Assistant; Visit Provider Nurse Practitioner Family
DX: Z01.818 Encounter for other preprocedural examination (principal); Z12.11 Encounter for screening for malignant neoplasm of colon
CPT/HCPCS: S0285

== ENCOUNTER 2025-09-05 12:45 | Outpatient (REF) | payer OTHER, SELFPAY ==
[2025-09-06 03:28] LABS: Bacterial Vaginosis PCR POSITIVE (Negative); Candida Group PCR NOT DETECTED (Not Detect); Candida glab krusei PCR NOT DETECTED (Not Detect); Trichomonas vaginalis PCR NOT DETECTED (Not Detect)
[2025-09-06 03:58] LABS: CT PCR NOT DETECTED (Not Detect.); NG PCR NOT DETECTED (Not Detect.)
== END 2025-09-05 12:46 | disposition home or self-care (01) ==
LOC: HO.LNP 12:45
PROVIDERS: PCP Physician Assistant; Visit Provider Advanced Practice Midwife
DX: Z01.419 Encounter for gynecological examination (general) (routine) without abnormal findings (principal); Z20.2 Contact with and (suspected) exposure to infections with a predominantly sexual mode of transmission; F17.210 Nicotine dependence, cigarettes, uncomplicated; Z87.42 Personal history of other diseases of the female genital tract; Z98.51 Tubal ligation status
CPT/HCPCS: 81515; 87491; 87591; 87626; 88175

== ENCOUNTER 2025-09-05 12:45 | Outpatient (AMB) | payer OTHER, SELFPAY ==
[2025-09-05 12:49] VITALS: BP 130/68; BMI 24.6
--- NOTE | 2025-09-05 12:49 | MHC.OFFVIS ---
Vital Signs 09/05/25 12:49 Height 5 ft 5 in Weight 148 lb BMI 24.6 BP 130/68 Blood Pressure Location Rt brachial Position Sitting Intake Visit Reasons: WELLNESS PROGRAM MANAGER annual exam/Internal Referral Intake Note: here for Cancer Registry Coordinator annual . Last Pap smear was in [place] in 2019 Distilling Department Supervisor Required: No Information Interpreted: non-clinical & clinical Petroleum Plant Operator: Petroleum Plant Operator Present (Massiel) Accompanied by: Self / Same As Patient Allergies No Known Allergies Allergy (Unverified 09/05/25 12:52) Medication List - Last Reconciled 09/05/25 by Afua Mitchell LPN bisacodyl (Dulcolax (bisacodyl)) 20 mg (4 x 5 mg) PO ONCE 1 day hydroxyzine HCl 25 mg PO BID PRN polyethylene glycol 3350 (Miralax) 238 grams PO ONCE Is last menstrual period known: No HPI HPI WELLNESS PROGRAM MANAGER annual exam/Internal Referral: Details: Patient is here for flake or shred roll operator annual exam she has a history of cancers lesions on her cervix years ago and she needed to be delivered early and had some sort of treatment since believes they were normal since though her last Pap smear was in 2019 in [place]. She is postmenopausal not sexually active at the moment but open the staying along with the Pap smear. She is a smoker. She recall seeing somebody here and being given some transdermal patches to help with hot flashes that were hormonal in 2015 but did not do use them very long. 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 She is up-to-date on her mammograms she has been undergoing a dermatology workup and we will be having Mohs surgery for a lesion on her face coming up soon. [facility] Medical History (Updated 09/05/25 @ 14:01 by Antoinette Yen CNM) Cigarette smoker Alcohol use disorder in remission Anxiety Headache AVM (arteriovenous malformation) brain Goiter Surgical History (Updated 09/05/25 @ 13:04 by Afua Mitchell LPN) History of bilateral tubal ligation H/O cone biopsy of cervix Status post radiation therapy S/P tonsillectomy H/O lumbar discectomy S/P radiation therapy > 12 wks ago Family History Mother CAD (coronary artery disease) of artery bypass graft Arterial occlusive disease Diabetes Sister Diabetes Father Metastatic cancer Social History (Updated 09/05/25 @ 12:58 by Afua Mithcell LPN) Housing: Apartment Alcohol intake: former Patient Tobacco Use Status: Current everyday Tobacco user Cigarettes Per Day: 9 Years Smoked: 29 years service: No Current occupational status: employed 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 Female Reproductive History Menstrual Age of Menarche: 13 Date of last menstrual period: 09/05/15 control method: permanent sterilization Menopause type: natural Age of menopause: 45 Total pregnancies: 5 Number of Living Children: 3 Ab induced: 1 Ectopics: 1 Date of last pap smear: 09/05/19 History of abnormal pap smear: Yes (In [place] had cone Biopsy Non Invasive) Date of Mammogram: 05/19/25 History of abnormal mammogram: No Physical Exam Vital Signs: Last Vital Signs BP 130/68 09/05/25 12:49 BMI result Body Mass Index 24.6 Const General: healthy appearing, comfortable, no acute distress, well developed and alert Nutritional Appearance: average body habitus Orientation/consciousness: patient oriented x3 Limitations: no limitations HEENT Head: Yes normocephalic Neck Neck: Yes normal visual inspection Chest Chest palpation & inspection: normal inspection of the chest Breast/axilla inspection: normal inspection of the breasts and normal inspection of the axillae Breast/axilla palpation: normal palpation of the breasts and normal palpation of the axillae Resp Effort & Inspection: normal respiratory effort GI Inspection: Yes normal to inspection, No Abdominal wall edema and No distended Palpation (GI): Soft to palpation and nontender Other: External exam within normal limits vagina pink and moist atrophic changes evident cervix appears very scarred in appearance similar to a vaginal cuff. [place] there is a little bit of a white discharge testing for organisms done. Pap smear taken cervix is very flattened against vaginal apex. Uterus difficult to feel but not enlarged nontender adnexa nontender bladder is full patient has good muscle tone. General: Yes bladder normal to palpation External Female Exam: normal external appearance and normal appearance of the urethra Speculum Exam - Vagina: normal appearance of the vagina, normal palpation and normal vaginal discharge Speculum Exam - Cervix: normal appearance of the cervix, normal palpation and nontender Bimanual exam- vagina & uterus: normal bimanual exam, normal palpation, uterine size normal, bladder normal to palpation, consistency normal, normal palpation, uterine mobility normal, uterine shape normal, No Cervical tenderness present, non-tender and no cervical motion tenderness Bimanual Exam- Adnexa, other: normal adnexae, no masses, normal and No adnexal tenderness Neuro General: patient oriented x3 Assessment & Plan Assessment & Plan (1) Well woman exam with routine gynecological exam: Code(s): Z01.419 - Encounter for gynecological examination (general) (routine) without abnormal findings Category: Medical (2) Hx of abnormal cervical Pap smear: Comment: History of cervical cancer over 20 years ago with various procedures in [place]. Reportedly normal after that last Pap 2019. Code(s): Z87.42 - Personal history of other diseases of the female genital tract Category: Medical (3) Cigarette smoker: Code(s): F17.210 - Nicotine dependence, cigarettes, uncomplicated Category: Social Hx (4) Screen for sexually transmitted diseases: Code(s): Z11.3 - Encounter for screening for infections with a predominantly sexual mode of transmission Category: Medical Plan -----Discussed in this visit the following: healthy balanced diet, regular and consistent exercise, getting recommended health screens, doing the best she can for her particular health concerns, kegel exercises, pap smear screening and followup recommendations, mammography screening and SBE, normal changes in cycles in her life stage--- . Reviewed her other health concerns and her follow-up that she is getting. Pap smear was done testing for STIs and other organisms done we will await results. She is up-to-date on her other screens and is following up with all of her specialists and PCC. Orders: Orders CT NG by PCR Vag/Cerv Today Z11.3 - Encounter for screening for infections with a predominantly sexual mode of transmission Bacterial Vaginosis Panel Today Z11.3 - Encounter for screening for infections with a predominantly sexual mode of transmission Pap Smear Today Z00.00 - Encounter for general adult medical examination without abnormal findings HPV High risk Today Z00.00 - Encounter for general adult medical examination without abnormal findings Coding Level of Care Code New Pt Prev Care 40-64y(57250) Diagnoses Well woman exam with routine gynecological exam Z01.419 Hx of abnormal cervical Pap smear Z87.42 Cigarette smoker F17.210 Screen for sexually transmitted diseases Z11.3
--- OUTSIDE RECORDS SUMMARY | 2025-09-05 14:41 | XMS_ITS | Encounter Summary ---
Author Organization [facility] Address [address] [place] [address] Phone Care Team Providers Care Histopathology Technician Name Role Phone Jm Heredia MD Primary Care Provider Encounter Details Date Type Department Care Team (Late st Contact Info) Description 12/15/2020 Procedure Pass [facility] IMG [id number] MG [address] [place] [address] Social History Tobacco Use Types Packs/Day Years [...] on filedocumented in this encounter Care Teams Histopathology Technician Relationship Specialty Start Date End Date Jm Heredia MD [address] [place] [address] [place] [id number] PCP - General Internal Medicine 10/06/20 documented as of this encounter Additional Source Comments The information contained in this document represents components of the legal health record. It is not the complete legal health record.[facility]
--- OUTSIDE RECORDS SUMMARY | 2025-09-05 14:41 | XMS_ITS | Clinical Summary ---
Author Organization [employer] Address [address] [place] [address] Care Team Providers Care Clinic Coordinator Name Role Phone Unavailable Primary Care Provider Unavailabl e Allergies No known active allergies Medications hydrOXYzine HCl (Atarax) 25 MG tablet Take 25 mg by mouth 2 times daily. Active topiramate (Topamax Sprinkle) 25 MG capsule Take 25 mg by mouth 2 times daily. Active Encounters Date Type Department Care Team Description 08/12/2025 8:00 AM EDT Office Visit [facility] [address] [place] [id number] Ciera Greer 08/07/2025 Travel from Last 3 Months Social History Tobacco Use Types Packs/Day Years [...] Sign Reading Time Taken Comments Blood Pressure 130/76 08/12/2025 8:14 AM EDT Pulse 69 08/12/2025 8:14 AM EDT Temperature - - Respiratory Rate - - Oxygen Saturation - - Inhaled Oxygen Concentration - - Weight - - Height - - Body Mass Index - - Plan of Treatment Health Maintenance Due Date Last Done Comments CT Colonography 1972 Colonoscopy 1972 Colorectal Cancer Screening 1972 Depression Screening 1972 FIT DNA/Cologuard 1972 FIT 1972 FOBT 1972 HIV Screening 1972 Lipid Panel 1972 SDOH Screening 1972 Sigmoidoscopy 1972 Disability Screening 1972 Alcohol/Substance Use Screening 1984 Hepatitis C Screening 1990 DTaP/Tdap/Td Vaccines (1 - Tdap) 1991 Hepatitis B Vaccines (1 of 3 - 19+ 3-dose series) 1991 Pneumococcal Vaccine: 50+ Years (1 of 2 - PCV) 1991 Pap Smear 1993 Cervical Cancer Screening 2002 HPV/Cotest 2002 Mammogram 2012 Zoster Vaccines (1 of 2) 2022 Dental Prophylaxis 08/23/2024 02/21/2024, 12/10/2019 COVID-19 Vaccine (1 - 2023-2 5 season) 2025 Influenza Vaccine (#1) 2025 Dental Oral Exam 02/10/2026 08/12/2025, 02/21/2024, 10/24/2019 Tobacco Screening 08/12/2026 08/12/2025 Dental X-Ray: Bitewings 08/13/2026 08/12/20 25, 02/21/2024, 10/24/2019 Dental X-Ray: Full Mouth 08/13/2028 025, 10/24/2019 RSV Patients and Patients Aged 60 years [...] Procedure Name Priority Date/Time Associated Diagnosis Comments PERIODIC ORAL EVALUATION - ESTABLISHED PATIENT Routine 08/12/2025 8:00 AM EDT INTRAORAL - COMPLETE SERIES OF RADIOGRAPHIC IMAGES Routine 08/12/2025 8:00 AM EDT PROPHYLAXIS - ADULT Routine 02/21/2024 3 :00 PM EDT from Last 3 Months or Most Recently Relevant to Health Maintenance Insurance DENTAL - [facility] Member Subscriber Plan / Payer ( fective 2024-Present) Name:Alejandra Stricklandkrys Nelson Relation to Subscriber:Self Name:Lashon Strickland Payer ID:Not on file /[id number] Type:Not on file Address: [address] DENTAL [facility] [address] [place] [id number]
--- OUTSIDE RECORDS SUMMARY | 2025-09-05 14:41 | XMS_ITS | Encounter Summary ---
Author Organization [facility] Address [address] [place] [address] Care Team Providers Care Manufacturing Project Manager Name Role Phone Unavailable Primary Care Provider Unavailabl e Encounter Details Date Type Department Care Team (Latest Contact Info) Description 12/10/2019 Abstract [facility] CONVERSIONS Dental, Provider, DDS Social History Tobacco Use Types Packs/Day Years Used Date Smoking Tobacco: Never Assessed Comments Unknown Sex and Gender Information Value Date Recorded Sex Assigned at Female 09/12/2022 10:36 AM EDT Legal Sex Female 10:36 AM EDT Gender Identity Female 02/06/2024 1:19 PM EDT Sexual Orientation Straight 09/12/2022 10 :36 AM EDT documented as of this encounter Plan of Treatment Not on file documented as of this encounter Visit Diagnoses Not on filedocumented in this encounter
--- OUTSIDE RECORDS SUMMARY | 2025-09-05 14:41 | XMS_ITS | Encounter Summary ---
Author Organization [facility] Address [address] [place] [address] Phone Care Team Providers Care Peach Grower Name Role Phone Jm Heredia MD Primary Care Provider Encounter Details Date Type Department Care Team (Late st Contact Info) Description 11/27/2020 Prep for Surgery [facility] [address], [address] [place] [address] Nenita Hernandez QUANTITATIVE ANALYST [address] [place] [address] [email or web address] Social History Tobacco Use Types Packs/Day Years Used Date Smoking Tobacco: Every Day Cigarettes 0.5 25 Smokeless Tobacco: Never Comments:has patch Alcohol Use Standard Drinks/Week Comments Never 0 (1 standard drink = 0.6 oz pur e alcohol) Comments Unknown Sex and Gender Information Value Date Recorded Sex Assigned at Not on file Legal Sex Female 11:16 AM EST Gender Identity Not on file Sexual Orientation Not on file documented as of this encounter Functional Status documented as of this encounter Plan of Treatment Not on file documented as of this encounter Visit Diagnoses Not on filedocumented in this encounter Care Teams Peach Grower Relationship Specialty Start Date End Date Jm Heredia MD [address] [place] [address] [place] [address] PCP - General Internal Medicine 10/06/20 documented as of this encounter Additional Source Comments The information contained in this document represents components of the legal health record. It is not the complete legal health record.[facility]
--- OUTSIDE RECORDS SUMMARY | 2025-09-05 14:41 | XMS_ITS | Encounter Summary ---
Author Organization [facility] Address [address] [place] [address] Phone Care Team Providers Care Appliances Sample Maker Name Role Phone Jm Heredia MD Primary Care Provider Encounter Details Date Type Department Care Team (Late st Contact Info) Description 12/03/2020 Procedure Pass [facility], [facility] [address] 2nd [place] [address] Social History Tobacco Use Types Packs/Day Years [...] on filedocumented in this encounter Care Teams Appliances Sample Maker Relationship Specialty Start Date End Date Jm Heredia MD [address] [place] [address] [place] [id number] PCP - General Internal Medicine 10/06/20 documented as of this encounter Additional Source Comments The information contained in this document represents components of the legal health record. It is not the complete legal health record.[facility]
--- OUTSIDE RECORDS SUMMARY | 2025-09-05 14:41 | XMS_ITS | Encounter Summary ---
Author Organization [facility] Address [address] [place] [address] Phone Care Team Providers Care Spray Unit Feeder Name Role Phone Jm Heredia MD Primary Care Provider Encounter Details Date Type Department Care Team (Late st Contact Info) Description 12/22/2020 Procedure Pass [facility], [facility] 2 [address] [facility] [facility] 2nd [place] [address] Social History Tobacco Use Types Packs/Day Years [...] on filedocumented in this encounter Care Teams Spray Unit Feeder Relationship Specialty Start Date End Date Jm Heredia MD [address] [place] [address] [place] [address] PCP - General Internal Medicine 10/06/20 documented as of this encounter Additional Source Comments The information contained in this document represents components of the legal health record. It is not the complete legal health record.[facility]
--- OUTSIDE RECORDS SUMMARY | 2025-09-05 14:41 | XMS_ITS | Encounter Summary ---
Author Organization [facility] Address [address] [place] [address] Phone Care Team Providers Care Civil Technician Name Role Phone Jm Heredia MD Primary Care Provider Encounter Details Date Type Department Care Team (Late st Contact Info) Description 12/01/2020 Procedure Pass [facility] - Peripoerative Interventional Radiology [address] [facility] 4th [place] [address] Social History Tobacco Use Types Packs/Day Years [...] on filedocumented in this encounter Care Teams Civil Technician Relationship Specialty Start Date End Date Jm Heredia MD [address] [place] [address] [place] [address] PCP - General Internal Medicine 10/06/20 documented as of this encounter Additional Source Comments The information contained in this document represents components of the legal health record. It is not the complete legal health record.[facility]
--- OUTSIDE RECORDS SUMMARY | 2025-09-05 14:41 | XMS_ITS | Encounter Summary ---
Author Organization [facility] Address [address] [place] [address] Phone Care Team Providers Care Head Of Partner Development Name Role Phone Jm Heredia MD Primary Care Provider Reason for Referral * MRI/CAT Scan - Closed Specialty Diagnoses / Procedures Referred By Radha schaefer Referred To Contact Radiology Diagnoses Cerebral AVM Procedures MRI Brain CHG MRI BRAIN COMBO CHG FUNCTIONAL MRI BRAIN BY PHYS/PSYCH CHG 3D RENDERING W/INTERP & POSTPROCESS SUPERVISION Nenita Hernandez FNP Phone: tel: fax: mailto:[email or web address] Referral ID Status Reason Start Date Expiration Date Visits Re quested Visits Authorized [id number] Closed 12/22/2020 01/10/2021 1 1 Encounter Details Date Type Department Care Team (Late st Contact Info) Description 12/22/2020 Ancillary Orders [facility] [address] [place] [address], 7th [address] [place] [address] Nenita Hernandez FNP [address] [place] [phone] [email or web address] Cerebral AVM Social History Tobacco Use Types Packs/Day Years [...] on file documented as of this encounter Results * MRI BRAIN WITH AND WITHOUT CONTRAST (12/22/2020 3:17 PM EST) Anatomical Region Laterality Modality Head Magnetic Resonan ce 12/24/2020 11:4 9 AM EST Impressions 12/27/2020 3:08 PM EST Structural MRI: Similar appearance of the known right postcentral gyrus AVM nidus, measuring approximately 0.9 cm. Superficial drainage into adjacent superficial cortical veins, eventually draining into the superior sagittal sinus. Arterial supply by distal right MCA branches. No evidence of intracranial hemorrhage, significant mass effect or infarct. fMRI: Cortical primary motor activations during left hand movement are located immediately superior to the AVM nidus. Facial motor cortical activations were suboptimal, but appear to be located anterolateral to the AVM nidus. DTI tractography The AVM nidus is surrounded by ENVELOPE FOLDER and SLF/arcuate fibers as described in the body of the report. The AVM nidus is posterior to the right frontal aslant tract and by at least 1 cm. NOTE: Functional maps and reconstructed white matter tracts are available in the working storage directory of the [facility]. system for preoperative review. Please note that the described distances can change depending on the statistical thresholds and fractional anisotropy thresholds used during post-processing of the fMRI and DTI datasets. This report has been forwarded to an automated communication system which will electronically notify appropriate providers of potentially important findings. ATTESTATION: I, Dr. Jamar Marsh as teaching physician, have reviewed the images for this case and if necessary edited the report originally created by Dr. Jojo Melton. Narrative 12/27/2020 3:08 PM EST MRI BRAIN WITH AND WITHOUT CONTRAST, MRI 3D RECONSTRUCTION FUNCTIONAL HEAD POST-PROCEDURE ADDON, MRI BRAIN FUNCTIONAL TECHNIQUE: MRI Brain without and with contrast; Functional MRI Brain. The study was performed on a Siemens Lupe Fit (3.0T) scanner. HISTORY: Brain lesion near eloquent cortex. Brain structural MRI and fMRI requested for presurgical planning. Previous cerebral angiogram showed a small <3 cm AVM with MCA feeders and superficial drainage by cortical veins to the superior sagittal sinus. The Spetzler-Cain grade is 2. COMPARISON: Outside hospital brain MRI dated 09/29/2020; DSA dated 11/21/2020. Structural MRI: 3D-FLAIR before gadolinium contrast, T1-weighted 3D-MPRAGE before and after contrast, all at 1 mm isotropic voxel size. BOLD fMRI:Acquired before contrast at 3 mm isotropic voxel size. Each run employed a block design paradigm consisting of 4.5 rest-activation cycles with a total duration of 4.5 minutes. Motor paradigms: Left hand repetitive finger-thumb opposition (2 runs), right hand repetitive finger-thumb opposition (1 run), left foot alternating toe dorsiflexion-plantar flexion (2 runs), right foot alternating toe dorsiflexion-plantar flexion (1 run), face (lip puckering) (1 run). DTI: Acquired before contrast at 2 mm isotropic voxel size using 60 diffusion-encoding gradient directions, b = 700 s/mm^2. Post-processing: Statistical maps of task-activation were generated for each individual run using a general linear model. Models of the corticospinal tracts, superior longitudinal fasciculus/arcuate fasciculi, inferior fronto-occipital fasciculi, and frontal aslant tracts were generated from the DTI data using a deterministic streamline tractography algorithm. fMRI activations, tract models, and structural MRI images were coregistered, fused, and visualized using triplanar reconstructions and 3D volume rendering. Statistical maps were evaluated at variable thresholds, centered around a voxel- goldman statistical significance of p < .05 (corrected using Gaussian random field theory). FINDINGS: Structural MRI findings: There is redemonstration of a small cluster of abnormal vessels within the lateral aspect of the right postcentral gyrus, at the level of the subcortical white matter and posterior cortex, extending into the adjacent right postcentral sulcus, measuring approximately 0.9 x 0.9 x 0.9 mm (maximal AP, transverse and craniocaudal dimensions) and compatible with an AVM nidus. As previously reported, the AVM nidus is drained by dilated superficial cortical veins that eventually drain into the superior sagittal sinus, and supplied by distal right MCA feeders. No definite intra-nidal aneurysm is identified. There is increased signal within the draining veins on susceptibility-weighted images, compatible with arterialized venous blood secondary to the AV shunt. There is no abnormal parenchymal T2/FLAIR hyperintensity surrounding the AVM nidus. There is no MR evidence of prior hemorrhage within the nidus or surrounding brain parenchyma. There are mild nonspecific ill-defined T2/FLAIR hyperintense foci within the periventricular white matter, slightly more prominent in the left frontal periventricular white matter. The ventricular system and cortical sulci are normal in size and configuration. Mild prominence of the temporal horns (right greater than left) is unchanged and may reflect a normal anatomical variant. There is no significant midline shift or brain herniation. There is no abnormal restricted diffusion in the brain parenchyma or evidence of an acute/subacute infarct. There is also no abnormal susceptibility signal within the remaining portions of the brain parenchyma. Major arterial intracranial flow voids appear otherwise patent. Orbits, paranasal sinuses, mastoid air cells, visualized portions of the skull and pericranial soft tissues are unremarkable. fMRI findings: Motor: Left hand: There was minimal head motion and activation was robust. Left hand movement activated 1) the right precentral and postcentral gyri centered on the omega region of the central sulcus (M1/S1); 2) the medial aspect of the right superior frontal gyrus (SMA); 3) the left cerebellar hemisphere. The cortical primary motor activations during left hand movement are located immediately superior to the AVM nidus. Right hand: There was minimal head motion and activation was robust. Right hand movement activated 1) the left precentral and postcentral gyri centered on the omega region of the central sulcus (M1/S1); 2) the medial aspect of the left superior frontal gyrus (SMA); 3) the right cerebellar hemisphere. Left foot: There was minimal head motion and activation was robust. Left foot movement activated 1) the right precentral and postcentral gyri in the paracentral lobule (M1/S1); 2) the medial aspect of the right superior frontal gyrus (SMA)); 3) the left cerebellar hemisphere. The cortical primary motor activations during left foot movement are relatively distant from the AVM nidus. Right foot: There was minimal head motion and activation was robust. Right foot movement activated 1) the left precentral and postcentral gyri in the paracentral lobule (M1/S1); 2) the medial aspect of the left superior frontal gyrus (SMA)); 3) the right cerebellar hemisphere. Face (lip puckering): Cortical activations were suboptimal during the facial motor task. Face movement activated the bilateral precentral and postcentral gyri centered along the inferolateral aspects of the central sulci (M1/S1), inferior to the hand activations. The cortical primary facial motor activations in the right hemisphere appeared to be located anterolateral to the AVM nidus. DTI tractography findings: Corticospinal tracts (ENVELOPE FOLDER): Right ENVELOPE FOLDER fibers appear focally effaced at the expected location of the right postcentral AVM nidus. Reconstructed ENVELOPE FOLDER fibers are seen immediately surrounding the AVM nidus. Superior longitudinal fasciculus/arcuate fasciculus: The AVM nidus is located along the superolateral aspect of the frontal component of the right SLF/arcuate fasciculus. SLF/arcuate fibers are seen immediately surrounding the medial, posterior, inferior and posterolateral aspects of the AVM nidus. Inferior fronto-occipital fasciculus: The AVM nidus is located superior to and relatively distant from the right IFOF fibers Frontal aslant tracts: The AVM nidus is posterior to the right frontal aslant tract and by at least 1 cm. Procedure Note Jamar Marsh MD - 12/27/2020 MRI BRAIN WITH AND WITHOUT CONTRAST, MRI 3D RECONSTRUCTION FUNCTIONAL HEADPOST-PROCEDURE ADDON, MRI BRAIN FUNCTIONAL TECHNIQUE: MRI Brain without and with contrast; Functional MRI Brain. Thestudy was performed on a Siemens Lupe Fit (3.0T) scanner. HISTORY: Brain lesion near eloquent cortex. Brain structural MRI andfMRI requested for presurgical planning. Previous cerebral angiogramshowed a small <3 cm AVM with MCA feeders and superficial drainage bycortical veins to the superior sagittal sinus. The Spetzler-Cain gradeis 2. COMPARISON: Outside hospital brain MRI dated 09/29/2020; DSA date11/21/2020. Structural MRI: 3D-FLAIR before gadolinium contrast, T1-weighted 3D-MPRAGEbefore and after contrast, all at 1 mm isotropic voxel size. BOLD fMRI:Acquired before contrast at 3 mm isotropic voxel size. Each runemployed a block design paradigm consisting of 4.5 rest-activation cycleswith a total duration of 4.5 minutes. Motor paradigms: Left hand repetitive finger-thumb opposition (2 runs),right hand repetitive finger-thumb opposition (1 run), left footalternating toe dorsiflexion-plantar flexion (2 runs), right footalternating toe dorsiflexion- plantar flexion (1 run), face (lip puckering)(1 run). DTI: Acquired before contrast at 2 mm isotropic voxel size using 60diffusion- encoding gradient directions, b = 700 s/mm^2. Post-processing: Statistical maps of task-activation were generated foreach individual run using a general linear model. Models of the corticospinal tracts, superior longitudinalfasciculus/arcuate fasciculi, inferior fronto-occipital fasciculi, andfrontal aslant tracts were generated from the DTI data using adeterministic streamline tractography algorithm. fMRI activations, tract models, and structural MRI images werecoregistered, fused, and visualized using triplanar reconstructions and 3Dvolume rendering. Statistical maps were evaluated at variable thresholds,centered around a voxel-goldman statistical significance of p < .05(corrected using Gaussian random field theory). FINDINGS: Structural MRI findings: There is redemonstration of a small cluster of abnormal vessels within thelateral aspect of the right postcentral gyrus, at the level of thesubcortical white matter and posterior cortex, extending into the adjacentright postcentral sulcus, measuring approximately 0.9 x 0.9 x 0.9 mm(maximal AP, transverse and craniocaudal dimensions) and compatible withan AVM nidus. As previously reported, the AVM nidus is drained by dilatedsuperficial cortical veins that eventually drain into the superiorsagittal sinus, and supplied by distal right MCA feeders. No definiteintra-nidal aneurysm is identified. There is increased signal within thedraining veins on susceptibility-weighted images, compatible witharterialized venous blood secondary to the AV shunt. There is no abnormalparenchymal T2/FLAIR hyperintensity surrounding the AVM nidus. There isno MR evidence of prior hemorrhage within the nidus or surrounding brainparenchyma. There are mild nonspecific ill-defined T2/FLAIR hyperintense foci withinthe periventricular white matter, slightly more prominent in the leftfrontal periventricular white matter. The ventricular system and corticalsulci are normal in size and configuration. Mild prominence of thetemporal horns (right greater than left) is unchanged and may reflect anormal anatomical variant. There is no significant midline shift or brainherniation. There is no abnormal restricted diffusion in the brain parenchyma orevidence of an acute/subacute infarct. There is also no abnormalsusceptibility signal within the remaining portions of the brainparenchyma. Major arterial intracranial flow voids appear otherwisepatent. Orbits, paranasal sinuses, mastoid air cells, visualized portions of theskull and pericranial soft tissues are unremarkable. fMRI findings: Motor: Left hand: There was minimal head motion and activation was robust. Lefthand movement activated 1) the right precentral and postcentral gyricentered on the omega region of the central sulcus (M1/S1); 2) the medialaspect of the right superior frontal gyrus (SMA); 3) the left cerebellarhemisphere. The cortical primary motor activations during left handmovement are located immediately superior to the AVM nidus. Right hand: There was minimal head motion and activation was robust.Right hand movement activated 1) the left precentral and postcentral gyricentered on the omega region of the central sulcus (M1/S1); 2) the medialaspect of the left superior frontal gyrus (SMA); 3) the right cerebellarhemisphere. Left foot: There was minimal head motion and activation was robust. Leftfoot movement activated 1) the right precentral and postcentral gyri inthe paracentral lobule (M1/S1); 2) the medial aspect of the right superiorfrontal gyrus (SMA)); 3) the left cerebellar hemisphere. The corticalprimary motor activations during left foot movement are relatively distantfrom the AVM nidus. Right foot: There was minimal head motion and activation was robust.Right foot movement activated 1) the left precentral and postcentral gyriin the paracentral lobule (M1/S1); 2) the medial aspect of the leftsuperior frontal gyrus (SMA)); 3) the right cerebellar hemisphere. Face (lip puckering): Cortical activations were suboptimal during thefacial motor task. Face movement activated the bilateral precentral andpostcentral gyri centered along the inferolateral aspects of the centralsulci (M1/S1), inferior to the hand activations. The cortical primaryfacial motor activations in the right hemisphere appeared to be locatedanterolateral to the AVM nidus. DTI tractography findings: Corticospinal tracts (ENVELOPE FOLDER): Right ENVELOPE FOLDER fibers appear focally effaced atthe expected location of the right postcentral AVM nidus. ReconstructedCST fibers are seen immediately surrounding the AVM nidus. Superior longitudinal fasciculus/arcuate fasciculus: The AVM nidus is located along the superolateral aspect of the frontalcomponent of the right SLF/arcuate fasciculus. SLF/arcuate fibers areseen immediately surrounding the medial, posterior, inferior andposterolateral aspects of the AVM nidus. Inferior fronto-occipital fasciculus: The AVM nidus is located superior to and relatively distant from the rightIFOF fibers Frontal aslant tracts: The AVM nidus is posterior to the right frontal aslant tract and separatedby at least 1 cm. IMPRESSION: Structural MRI: Similar appearance of the known right postcentral gyrus AVM nidus,measuring approximately 0.9 cm. Superficial drainage into adjacentsuperficial cortical veins, eventually draining into the superior sagittalsinus. Arterial supply by distal right MCA branches. No evidence ofintracranial hemorrhage, significant mass effect or infarct. fMRI: Cortical primary motor activations during left hand movement are locatedimmediately superior to the AVM nidus. Facial motor cortical activationswere suboptimal, but appear to be located anterolateral to the AVMnidus. DTI tractography The AVM nidus is surrounded by ENVELOPE FOLDER and SLF/arcuate fibers as described inthe body of the report. The AVM nidus is posterior to the right frontalaslant tract and by at least 1 cm. NOTE: Functional maps and reconstructed white matter tracts are availablein the working storage directory of the [facility] system for preoperativereview. Please note that the described distances can change depending onthe statistical thresholds and fractional anisotropy thresholds usedduring post-processing of the fMRI and DTI datasets. This report has been forwarded to an automated communication system whichwill electronically notify appropriate providers of potentially importantfindings. ATTESTATION: I, Dr. Jamar Marsh as teaching physician, have reviewed theimages for this case and if necessary edited the report originally createdby Dr. Jojo Melton. 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 It is not the complete legal health record.[facility]
--- OUTSIDE RECORDS SUMMARY | 2025-09-05 14:41 | XMS_ITS | Clinical Summary ---
Author Organization [facility] Address [address] [facility] [address] [place] [address] Phone Care Team Providers Care Cereal Miller Name Role Phone Jm Heredia MD Primary Care Provider Allergies No known active allergies Medications escitalopram oxalate (LEXAPRO) 10 MG tablet Take 10 mg by mouth daily. Active hydrOXYzine (ATARAX) 25 MG tablet Take 25 mg by mouth 2 (two) times a day as needed for itching. Active traZODone (DESYREL) 150 MG tablet Take 150 mg by mouth nightly at bedtime. Active loratadine (CLARITIN) 10 mg tablet Take 10 mg by mouth as needed. Active fluticasone propionate (FLONASE) 50 mcg/actuation nasal spray 1 spray by Nasal route daily. Active nicotine (NICODERM CQ) 14 mg/[address] 1 patch onto the skin daily. Active butalbital-acet aminophen-caffe ine (FIORICET, ESGIC) 50-325-40 mg per tablet Take 2 tablets by mouth as needed for pain (specific location in comments). Active topiramate (TOPAMAX) 25 MG capsule Take 25 mg by mouth 2 (two) times a day. Active LORazepam (ATIVAN) 1 MG tablet Take 1 tab (0.5 mg) starting 30mins-1hr prior to first radiation treatment. MDD: 3 tabs. 6 tablet 1 Active Social History Tobacco Use Types Packs/Day Years Used Date Smoking Tobacco: Every Day Cigarettes 0.5 25 Smokeless Tobacco: Never Tobacco Cessation:Ready to Q uit: Yes Comments:has patch Alcohol Use Standard Drinks/Week Comments Never 0 (1 standard drink = 0.6 oz pur e alcohol) Education Answer Date Recorded Are you interested in more education? Not on trinity e 03/10/2023 Are you concerned about learning? Not on file 03/10/2023 No 03/10/2023 No 03/10/2023 Digital Access Answer Date Recorded No 04/08/2023 No 04/08/2023 No 04/08/2023 Reliable internet access at home? Not on file 04/08/2023 Device with a working camera? Not on file Comments No Sex and Gender Information Value Date Recorded Sex Assigned at Not on file Legal Sex Female 11:16 AM EST Gender Identity Not on file Sexual Orientation Not on file Last Filed Vital Signs Vital Sign Reading Time Taken Comments Blood Pressure 108/57 12/01/2020 6:30 PM EST Pulse 58 12/01/2020 6:30 PM EST Temperature 36.7 C (98 F) 12/01/2020 6:30 PM EST Respiratory Rate 18 12/01/2020 6:30 PM EST Oxygen Saturation 98% 12/01/2020 6:30 PM EST Inhaled Oxygen Concentration - - Weight 63 kg (139 lb) 12/01/2020 10:35 AM EST Height 165.1 cm (5' 5 ) 12/01/2020 10:35 AM EST Body Mass Index 23.13 12/01/2020 10:35 AM EST Plan of Treatment Health Maintenance Due Date Last Done Comments Adult Td,Tdap Booster 1972 LIPID PANEL 1972 DEPRESSION SCREENING 1984 SMOKING Hx and SMOKELESS TOBACCO SCREENING 1985 HEPATITIS C SCREENING 1990 HIV ONE-TIME SCREENING (18-6 5 YEARS) 1990 PNEUMOCOCCAL VACCINES (50+ years) (1 of 2 - PCV) 1991 PAP SMEAR 1993 MAMMOGRAM 2012 COLOGUARD 2017 COLONOSCOPY 2017 COLORECTAL CANCER SCREENING 2017 FIT TEST 2017 FOBT 2017 SIGMOIDOSCOPY 2017 VIRTUAL COLONOSCOPY 2017 ZOSTER VACCINES (1 of 2) 2022 INFLUENZA VACCINE (#1) 2025 7, 09/09/2016 COVID-19 VACCINE (3 - 2024-2 6 season) 2025 12/03/2020, 11/10/2020 RSV VACCINE (1 - 1-dose 75+ series) 2047 HEPATITIS A VACCINES Aged Out No long er eligible based on patient's age to complete this topic HIB VACCINES Aged Out No longer eligi ble based on patient's age to complete this topic MENINGOCOCCAL VACCINES (ACWY) Aged Out No longer eligible based on patient's age to complete this topic MENINGOCOCCAL VACCINES (B) Aged Out N o longer eligible based on patient's age to complete this topic Medical Devices Implanted Type Area Forge Shop Supervisor Device Identifier Shelf Expiration Date Model / Serial / Lot Device Closure Mynxgrip 6-7fr Vascular Femoral Artery Atraumatic Tip Disp - Order In Multiples Of 11 - [id number] Implanted:Qty: 1 on 12/01/2020 by Branden Oglesby MD at [facility] Closure Device Right: [facility] 10/12/2022 [id number] / / [id number] Insurance [facility] Care Teams Cereal Miller Relationship Specialty Start Date End Date Jm Heredia MD [address] [place] [address] [place] [id number] PCP - General Internal Medicine 10/06/20 Additional Source Comments The information contained in this document represents components of the legal health record. It is not the complete legal health record.[facility]
--- OUTSIDE RECORDS SUMMARY | 2025-09-05 14:41 | XMS_ITS | Encounter Summary ---
Author Organization [facility] Address [address] [place] [address] Phone Care Team Providers Care Electrician Ship Name Role Phone Jm Heredia MD Primary Care Provider Reason for Referral * MRI/CAT Scan - Closed Specialty Diagnoses / Procedures Referred By Radha schaefer Referred To Contact Radiology Diagnoses Cerebral AVM Procedures MRI 3D Reconstruction Functional Head Post-Procedure Addon JAYCE 3D RENDERING W/INTERP&POSTPROC DIFF WORK STATION Nenita Hernandez FNP Phone: tel: fax: [email or web address]:[email or web address] Referral ID Status Reason Start Date Expiration Date Visits Re quested Visits Authorized [id number] Closed 12/22/2020 12/22/2020 1 1 Encounter Details Date Type Department Care Team (Late st Contact Info) Description 12/15/2020 Ancillary Orders For Login Purposes Only [address] [facility] Floor 2 [address] [place] [address] Nenita Hernandez FNP [address] [place] [address] [email or web address] Cerebral AVM Social History Tobacco Use Types [...] as of this encounter Results * MRI 3D Reconstruction Functional Head Post-Procedure Addon (12/23/2020 8:16 AM EST) Anatomical Region Laterality Modality Head Computed Tomogra phy 12/24/2020 11:4 9 AM EST Impressions 12/27/2020 [...] tractography The AVM nidus is surrounded by AIR TRAFFIC CONTROLLER and SLF/arcuate fibers as described in the body of the report. The AVM nidus is posterior to the right frontal aslant tract and by at least 1 cm. NOTE: Functional maps and reconstructed white matter tracts are available in the working storage directory of the [employer] system for preoperative review. Please note that [...] AVM nidus. DTI tractography findings: Corticospinal tracts (AIR TRAFFIC CONTROLLER): Right AIR TRAFFIC CONTROLLER fibers appear focally effaced at the expected location of the right postcentral AVM nidus. Reconstructed AIR TRAFFIC CONTROLLER fibers are seen immediately surrounding the AVM [...] AVM nidus. DTI tractography findings: Corticospinal tracts (AIR TRAFFIC CONTROLLER): Right AIR TRAFFIC CONTROLLER fibers appear focally effaced atthe expected location [...] tractography The AVM nidus is surrounded by AIR TRAFFIC CONTROLLER and SLF/arcuate fibers as described inthe body [...] Jojo Melton. 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 It is not the complete legal health record.[facility]
--- OUTSIDE RECORDS SUMMARY | 2025-09-05 14:41 | XMS_ITS | Encounter Summary ---
Author Organization [facility] Address [address] [place] [address] Phone Care Team Providers Care Behavioral Health Clinician Name Role Phone Jm Heredia MD Primary Care Provider Encounter Details Date Type Department Care Team (Late st Contact Info) Description 12/01/2020 Procedure Pass [facility] PERIOPERATIVE DEPT [address] [place] [address] Social History Tobacco Use Types [...] on filedocumented in this encounter Care Teams Behavioral Health Clinician Relationship Specialty Start Date End Date Jm Heredia MD [address] [place] [address] [place] [address] PCP - General Internal Medicine 10/06/20 documented as of this encounter Additional Source Comments The information contained in this document represents components of the legal health record. It is not the complete legal health record.[facility]
== END 2025-09-05 13:46 | disposition home or self-care (01) ==
LOC: HO.HWS 12:45
PROVIDERS: PCP Physician Assistant; Visit Provider Advanced Practice Midwife
DX: Z01.419 Encounter for gynecological examination (general) (routine) without abnormal findings (principal); Z87.42 Personal history of other diseases of the female genital tract; F17.210 Nicotine dependence, cigarettes, uncomplicated; Z11.3 Encounter for screening for infections with a predominantly sexual mode of transmission
CPT/HCPCS: 99386; 99459

== ENCOUNTER 2025-10-07 13:44 | Outpatient (AMB) | payer OTHER, SELFPAY ==
--- NOTE | 2025-10-07 13:52 | A.OFFVIS_ITS ---
Vital Signs 10/07/25 13:53 Height 5 ft 5 in Weight 148 lb BMI 24.6 BP 126/70 Intake Visit Reasons: Colposcopy Train Starter Required: No Information Interpreted: non-clinical & clinical Manager Mechanical Maintenance: Manager Mechanical Maintenance Present (Loren GUERRERO) Accompanied by: Self / Same As Patient Allergies No Known Allergies Allergy (Unverified 10/07/25 14:04) Post menopausal: Yes HPI Comments Details: Presenting referred from Antoinette Yen CNM regarding abnormal Pap smear showing the following: General Category: Epithelial cell abnormality. Adequacy: Endocervical component absent. Interpretation: Low grade squamous intraepithelial lesion (LSIL). Hyperkeratosis Coccobacilli consistent with shift in vaginal melva. HPV High Risk: Negative HPV Genotyping 16: Negative HPV Genotyping 18: Negative PFSH Medical History Status post radiation therapy Cigarette smoker Alcohol use disorder in remission Anxiety Headache AVM (arteriovenous malformation) brain Goiter Surgical History History of bilateral tubal ligation H/O cone biopsy of cervix S/P tonsillectomy H/O lumbar discectomy S/P radiation therapy > 12 wks ago Family History Mother CAD (coronary artery disease) of artery bypass graft Arterial occlusive disease Diabetes Sister Diabetes Father Metastatic cancer Social History Housing: Apartment Alcohol intake: former Patient Tobacco Use Status: Current everyday Tobacco user Cigarettes Per Day: 9 Years Smoked: 29 years service: No Current occupational status: employed 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 We thoroughly discussed the procedure itself, including its details, alternatives, and all associated risks. This included but not limited to the following complications such as bleeding, infection, and injury to the vagina, bladder, and vessels, as well as the potential need for transfusion with all its associated risks. Subsequently, the patient sign the consent. Pap smear result: LSIL. Procedure: During the procedure, the following steps were performed: A speculum was inserted, and acetic acid was applied. Colposcopy was conducted, allowing visualization of the transformation zone. Acetowhite lesions were identified at the 3+4 +6 +12 o'clock position. Cervical biopsies were obtained from the 3+4 +6 +12 o'clock position, followed by an endocervical curettage (ECC). Vaginoscopy of the upper vagina revealed no evidence of aceto-white lesions. Hemostasis was achieved using Monsel solution, and the patient tolerated the procedure well. Post-Procedure Instructions: The patient was advised to promptly contact the office or the after hours answering service or go to the emergency room if experiencing a temperature exceeding 100.4?F, abdominal pain, nausea/vomiting, or bleeding. Additionally, the patient was instructed to abstain from vaginal intercourse and bathtub use. The patient confirmed understanding of these instructions. Discharge Instructions: The patient was instructed to schedule a follow-up appointment in 2 weeks for further evaluation and management. Please note that this note was generated using a voice recognition program, and errors may have occurred during egg candler. [id number] of cervix including upper vagina with biopsy and ECC Procedure code (CPT) selection complete Assessment & Plan Assessment & Plan (1) LGSIL on Pap smear of cervix: Code(s): R87.612 - Low grade squamous intraepithelial lesion on cytologic smear of cervix (LGSIL) Category: Medical Plan: Discussed with the patient the result of her abnormal pap, its significance, risk of progression, persistence, and regression. the false positive/negative rate of a Pap smear as a screening test in detecting cervical cancer and the indication for a diagnostic test -colposcopy, biopsy, endocervical curettage. The patient verbalized understanding and agreed with the plan, all questions answered. Colposcopy, biopsy /ECC done, see procedure note Orders: Orders AMB Colposcopy Today R87.612 - Low grade squamous intraepithelial lesion on cytologic smear of cervix (LGSIL) Coding Level of Care Code Procedure Only Diagnoses LGSIL on Pap smear of cervix R87.612 CPT Codes Colposcopy - CPT: 43402-Mbhmowvnd of cervix including upper vagina with biopsy and ECC ([id number])
[2025-10-07 13:53] VITALS: BP 126/70; BMI 24.6
--- OUTSIDE RECORDS SUMMARY | 2025-10-07 17:34 | XMS_ITS | Clinical Summary ---
Author Organization [facility] Address [address] [place] [address] Phone Care Team Providers Care Mounting Machine Operator Name Role Phone Jm Heredia MD [...] this topic Medical Devices Implanted Type Area Director Export Device Identifier Shelf Expiration Date Model / Serial / Lot Device Closure Mynxgrip 6-7fr Vascular Femoral Artery Atraumatic Tip Disp - Order In Multiples Of 11 - [id number] Implanted:Qty: 1 on 12/01/2020 by Branden Oglesby MD at [facility] Closure Device Right: [facility] 10/12/2022 [id number] / / [id number] [facility] Care Teams Mounting Machine Operator Relationship Specialty Start Date End Date Jm Heredia MD [address] [place] [address] [place] [address] PCP - General Internal Medicine 10/06/20 Additional Source Comments The information contained in this document represents components of the legal health record. It is not the complete legal health record.[facility]
--- OUTSIDE RECORDS SUMMARY | 2025-10-07 17:34 | XMS_ITS | Encounter Summary ---
Author Organization [facility] Address [address] [place] [address] Phone Care Team Providers Care Poured Concrete Wall Technician Name Role Phone Jm Heredia MD Primary Care Provider Encounter Details Date Type Department Care Team (Late st Contact Info) Description 11/27/2020 Prep for Surgery [facility] Neurosurgery [address] [place] [address], 7th Floor, [address] [place] [address] Nenita Hernandez RODDING MACHINE TENDER [address] [place] [address] [email or web address] Social History Tobacco Use Types Packs/Day Years [...] on filedocumented in this encounter Care Teams Poured Concrete Wall Technician Relationship Specialty Start Date End Date Jm Heredia MD [address] [place] [address] [place] [address] PCP - General Internal Medicine 10/06/20 documented as of this encounter Additional Source Comments The information contained in this document represents components of the legal health record. It is not the complete legal health record.[facility]
--- OUTSIDE RECORDS SUMMARY | 2025-10-07 17:34 | XMS_ITS | Encounter Summary ---
Author Organization [facility] Address [address] [place] [address] Phone Care Team Providers Care Medical Records Coordinator Name Role Phone Jm Heredia MD Primary Care Provider Reason for Referral * MRI/CAT Scan - Closed Specialty Diagnoses / Procedures Referred By Radha schaefer Referred To Contact Radiology Diagnoses Cerebral AVM Procedures MRI 3D Reconstruction Functional Head Post-Procedure Addon JAYCE 3D RENDERING W/INTERP&POSTPROC DIFF WORK STATION Nenita Hernandez FNP Phone: tel: fax: [email or web address] Referral ID Status Reason Start Date Expiration Date Visits Re quested Visits Authorized [id number] Closed 12/22/2020 12/22/2020 1 1 Encounter Details Date Type Department Care Team (Late st Contact Info) Description 12/15/2020 Ancillary Orders For Login Purposes Only [address] [facility] Floor 2 [address] [place] [address] Nenita Hernandez FNP [address] [place] [address] [email or web address] Cerebral AVM Social History Tobacco Use Types [...] tractography The AVM nidus is surrounded by PRODUCTION SCHEDULER and SLF/arcuate fibers as described in the body of the report. The AVM nidus is posterior to the right frontal aslant tract and by at least 1 cm. NOTE: Functional maps and reconstructed white matter tracts are available in the working storage directory of the [employer] system for preoperative review. Please note that [...] AVM nidus. DTI tractography findings: Corticospinal tracts (PRODUCTION SCHEDULER): Right PRODUCTION SCHEDULER fibers appear focally effaced at the expected location of the right postcentral AVM nidus. Reconstructed PRODUCTION SCHEDULER fibers are seen immediately surrounding the AVM [...] AVM nidus. DTI tractography findings: Corticospinal tracts (PRODUCTION SCHEDULER): Right PRODUCTION SCHEDULER fibers appear focally effaced atthe expected location [...] tractography The AVM nidus is surrounded by PRODUCTION SCHEDULER and SLF/arcuate fibers as described inthe body [...] system documented in this encounter Care Teams Medical Records Coordinator Relationship Specialty Start Date End Date Jm Heredia MD [address] [place] [address] [place] [address] PCP - General Internal Medicine 10/06/20 documented as of this encounter Additional Source Comments The information contained in this document represents components of the legal health record. It is not the complete legal health record.[facility]
--- OUTSIDE RECORDS SUMMARY | 2025-10-07 17:34 | XMS_ITS | Encounter Summary ---
Author Organization [facility] Address [address] [place] [address] Phone Care Team Providers Care Radio Artist Name Role Phone Jm Heredia MD Primary Care Provider Encounter Details Date Type Department Care Team (Late st Contact Info) Description 12/03/2020 Procedure Pass [facility], [facility] 2 [address] [facility] [address] [facility] [address], 2nd [place] [address] Social History Tobacco Use Types Packs/Day Years [...] on filedocumented in this encounter Care Teams Radio Artist Relationship Specialty Start Date End Date Jm Heredia MD [address] [place] [address] [place] [address] PCP - General Internal Medicine 10/06/20 documented as of this encounter Additional Source Comments The information contained in this document represents components of the legal health record. It is not the complete legal health record.[facility]
--- OUTSIDE RECORDS SUMMARY | 2025-10-07 17:34 | XMS_ITS | Encounter Summary ---
Author Organization [facility] Address [address] [place] [address] Phone Care Team Providers Care Health Services Director Name Role Phone Jm Heredia MD Primary Care Provider Encounter Details Date Type Department Care Team (Late st Contact Info) Description 12/22/2020 Procedure Pass [facility], [facility] 2 [address] [facility], 2nd [place] [address] Social History Tobacco Use Types Packs/Day Years [...] on filedocumented in this encounter Care Teams Health Services Director Relationship Specialty Start Date End Date mJ Heredia MD [address] [place] [address] [place] [address] PCP - General Internal Medicine 10/06/20 documented as of this encounter Additional Source Comments The information contained in this document represents components of the legal health record. It is not the complete legal health record.[facility]
--- OUTSIDE RECORDS SUMMARY | 2025-10-07 17:34 | XMS_ITS | Encounter Summary ---
Author Organization [facility] Address [address] [place] [address] Phone Care Team Providers Care Quantitative Equity Head Name Role Phone Jm Heredia MD Primary Care Provider Encounter Details Date Type Department Care Team (Late st Contact Info) Description 12/01/2020 Procedure Pass [facility] Imaging - Peripoerative Interventional Radiology [address] [facility], 4th [place] [address] Social History Tobacco Use Types Packs/Day Years [...] on filedocumented in this encounter Care Teams Quantitative Equity Head Relationship Specialty Start Date End Date Jm Heredia MD [address] [place] [address] [place] [address] PCP - General Internal Medicine 10/06/20 documented as of this encounter Additional Source Comments The information contained in this document represents components of the legal health record. It is not the complete legal health record.[facility]
--- OUTSIDE RECORDS SUMMARY | 2025-10-07 17:34 | XMS_ITS | Encounter Summary ---
Author Organization [facility] Address [address] [place] [address] Phone Care Team Providers Care Senior Trainer Name Role Phone Jm Heredia MD Primary Care Provider Reason for Referral * MRI/CAT Scan - Closed Specialty Diagnoses / Procedures Referred By Radha schaefer Referred To Contact Radiology Diagnoses Cerebral AVM Procedures MRI Brain CHG MRI BRAIN COMBO CHG FUNCTIONAL MRI BRAIN BY PHYS/PSYCH CHG 3D RENDERING W/INTERP & POSTPROCESS SUPERVISION Nenita Hernnadez FNP Phone: tel: fax: [email or web address]:[email or web address] Referral ID Status Reason Start Date Expiration Date Visits Re quested Visits Authorized [id number] Closed 12/22/2020 01/10/2021 1 1 Encounter Details Date Type Department Care Team (Late st Contact Info) Description 12/22/2020 Ancillary Orders [facility] Neuro[facility] [address] [place] [address], 7th [address] [place] [address] Nenita Hernandez FNP [address] [place] [address] [email or web address] Cerebral AVM Social History Tobacco Use Types [...] tractography The AVM nidus is surrounded by RAILWAY TRACTION LINE WORKER and SLF/arcuate fibers as described in the body of the report. The AVM nidus is posterior to the right frontal aslant tract and by at least 1 cm. NOTE: Functional maps and reconstructed white matter tracts are available in the working storage directory of the [employer] system for preoperative review. Please note that [...] AVM nidus. DTI tractography findings: Corticospinal tracts (RAILWAY TRACTION LINE WORKER): Right RAILWAY TRACTION LINE WORKER fibers appear focally effaced at the expected location of the right postcentral AVM nidus. Reconstructed RAILWAY TRACTION LINE WORKER fibers are seen immediately surrounding the AVM [...] AVM nidus. DTI tractography findings: Corticospinal tracts (RAILWAY TRACTION LINE WORKER): Right RAILWAY TRACTION LINE WORKER fibers appear focally effaced atthe expected location [...] tractography The AVM nidus is surrounded by RAILWAY TRACTION LINE WORKER and SLF/arcuate fibers as described inthe body [...] system documented in this encounter Care Teams Senior Trainer Relationship Specialty Start Date End Date Jm Heredia MD [address] [place] [address] [place] [address] PCP - General Internal Medicine 10/06/20 documented as of this encounter Additional Source Comments The information contained in this document represents components of the legal health record. It is not the complete legal health record.[facility]
--- OUTSIDE RECORDS SUMMARY | 2025-10-07 17:34 | XMS_ITS | Clinical Summary ---
Author Organization [employer] Address [address] [facility] 7t [place] [address] Care Team Providers Care Strategic Alliances Manager Name Role Phone Unavailable Primary Care Provider Unavailabl e Allergies No known active allergies Medications hydrOXYzine HCl (Atarax) 25 MG tablet Take 25 mg by mouth 2 times daily. Active topiramate (Topamax Sprinkle) 25 MG capsule Take 25 mg by mouth 2 times daily. Active Encounters Date Type Department Care Team Description 08/12/2025 8:00 AM EDT Office Visit [facility] [address] [place] [place] [address] Ciera Greer 08/07/2025 Travel from Last 3 [...] 08/23/2024 02/21/2024, 12/10/2019 COVID-19 Vaccine (1 - 2024-2 6 season) 2025 Influenza Vaccine (#1) 2025 Dental [...] Recently Relevant to Health Maintenance Insurance [address] [place] [id number] [facility] [address] [place] [id number] [place] [phone] [place] [address] [place] [address], [place] [address]
--- OUTSIDE RECORDS SUMMARY | 2025-10-07 17:34 | XMS_ITS | Encounter Summary ---
Author Organization [facility] Address [address] [place] [address] Phone Care Team Providers Care Vice President Of News Name Role Phone Jm Heredia MD Primary Care Provider Encounter Details Date Type Department Care Team (Late st Contact Info) Description 12/15/2020 Procedure Pass [facility]G 3DCTMR MG [address] [place] [address] Social History Tobacco Use Types Packs/Day Years [...] on filedocumented in this encounter Care Teams Vice President Of News Relationship Specialty Start Date End Date Jm Heredia MD [address] [place] [address] [place] [address] PCP - General Internal Medicine 10/06/20 documented as of this encounter Additional Source Comments The information contained in this document represents components of the legal health record. It is not the complete legal health record.[facility]
--- OUTSIDE RECORDS SUMMARY | 2025-10-07 17:34 | XMS_ITS | Encounter Summary ---
Author Organization [facility] Address [address] [place] [address] Phone Care Team Providers Care Language Arts Teacher Name Role Phone Jm Heredia MD Primary Care Provider Encounter Details Date Type Department Care Team (Late st Contact Info) Description 12/01/2020 Procedure Pass [facility] PERIOPERATIVE DEPT [address] [place] [address] Social History Tobacco Use Types [...] on filedocumented in this encounter Care Teams Language Arts Teacher Relationship Specialty Start Date End Date Jm Heredia MD [address] [place] [address] [place] [address] PCP - General Internal Medicine 10/06/20 documented as of this encounter Additional Source Comments The information contained in this document represents components of the legal health record. It is not the complete legal health record.[facility]
--- OUTSIDE RECORDS SUMMARY | 2025-10-07 17:35 | XMS_ITS | Encounter Summary ---
Author Organization [email or web address] Address [address] [facility] 7t [place] [address] Care Team Providers Care Manufacturing Process Engineer Name Role Phone Unavailable Primary Care Provider Unavailabl e Encounter Details Date Type Department Care Team (Latest Contact Info) Description 12/10/2019 Abstract [facility] CONVERSIONS Dental, Provider, DDS Social History Tobacco [...]
== END 2025-10-07 15:22 | disposition home or self-care (01) ==
LOC: HO.HWS 13:45
PROVIDERS: PCP Physician Assistant; Visit Provider Obstetrics & Gynecology
DX: R87.612 Low grade squamous intraepithelial lesion on cytologic smear of cervix (LGSIL) (principal)
CPT/HCPCS: 57454

== ENCOUNTER 2025-10-07 13:44 | Outpatient (REF) | payer OTHER, SELFPAY | END 2025-10-07 13:45 | disposition home or self-care (01) | LOC: HO.LNP 13:44 | PROVIDERS: PCP Physician Assistant; Visit Provider Obstetrics & Gynecology | DX: R87.612 Low grade squamous intraepithelial lesion on cytologic smear of cervix (LGSIL) (principal) | CPT/HCPCS: 57454; 88305 ==

== ENCOUNTER 2025-10-29 16:01 | Outpatient (AMB) | payer OTHER, SELFPAY ==
--- NOTE | 2025-10-29 16:03 | A.OFFPC_ITS ---
Vital Signs 10/29/25 16:07 Height 5 ft 5 in Weight 69.513 kg BMI 25.5 BP 134/70 Respiration 14 Pulse 62 Pulse Source Pulse Oximeter Temp 97.8 F Temp Source Temporal Artery Scan Pulse Oximetry (%) 99 Oxygen Delivery Method Room Air Intake Visit Reasons: 6 Month F/U Mechanical Engineering Specialist Required: No Accompanied by: Self / Same As Patient Allergies No Known Allergies Allergy (Unverified 10/29/25 16:04) Medication List - Last Reconciled 10/29/25 by MAC Donnelly bisacodyl (Dulcolax (bisacodyl)) 20 mg (4 x 5 mg) PO ONCE 1 day hydroxyzine HCl 25 mg PO BID PRN polyethylene glycol 3350 (Miralax) 238 grams PO ONCE Tobacco use date assessed: 10/29/25 Dental Screening Dental Screen Date: 10/29/25 Did you have a dental visit in the last 12 months?: No Did you have a dental problem in the last 6 months where you did not have access to dental care?: No Was dental information given to patient?: Patient has dentist HPI HPI Comments History of Present Illness0 Details 55-year-old female with history of alcoh ol use disorder, anxiety, goiter, AVM who is a current everyday smoker presents to the office today for annual physical exam, for management of chronic conditions, and to establish care. Anxiety-she has been using hydroxyzine as needed. Still has little energy. Has tried SSRIs in the past without good effect. She still is interested in following with a counselor. Does have good social supports. Much of her anxiety stems from the suicide of her brother AVM brain-s/p stereotactic LINAC radiosurgery for complex avm with application of stereotactic headframe in in 2020, had been following with Dr. Ferrell in Neurology and transferred to [facility]. She has been discharge from [facility] and recommended for 3 repeat MRI of the brain. Does report occasional headaches Goiter/thyroid nodule-nuclear med thyroid update scan showed evidence of Graves disease/hyperthyroidism with homogeneous uptake. Despite this remains euthyroid. Denies any compressive symptoms. Most recent ultrasound 05/2025 showing 3 x 4 x 3 mm highly suspicious nodule in the midportion of the right thyroid lobe, TR5. Has not yet received appointment for endocrinology Cigarette smoking-continue smoking about 10 cigarettes on a daily basis. She is interested in quitting Alcohol use disorder-in remission, last alcohol consumption 6 years ago. Does attend and has good social supports. No other substance use. Concerns: None Health maintenance: BCC- NE Derm s/p Mohs 10/27. Also following with [facility] 05/2025, 1 year follow up Colonoscopy scheduled for Monday, Dr. Rafa Pacheco for Pap smear, appointment scheduled ROS: See HPI EXAM: Constitutional - Awake and Alert, No apparent distress Eyes - PERRLA, EOMI. Anicteric Nose- septum midline, nares clear, no sinus tendernes Neck-trachea midline, asymmetric thyroid R>L, witih palpable nodule upper right lobe Cardiovascular - S1S2, RRR, No edema Respiratory - Normal lung expansion, Normal respiratory effort, No respiratory distress, CTA bilaterally Extremities - no calf tenderness bilaterally, no swelling Skin - Warm/Dry Neurological - Alert & oriented x3, CN II-XII in tact, 5/5 strength BUE and BLE Psychological - Appropriate affect PFSH Medical History (Updated 10/29/25 @ 16:27 by MAC Donnelly) HLD (hyperlipidemia) Status post radiation therapy Cigarette smoker Alcohol use disorder in remission Anxiety Headache AVM (arteriovenous malformation) brain Goiter Surgical History History of bilateral tubal ligation H/O cone biopsy of cervix S/P tonsillectomy H/O lumbar discectomy S/P radiation therapy > 12 wks ago Family History Mother CAD (coronary artery disease) of artery bypass graft Arterial occlusive disease Diabetes Sister Diabetes Father Metastatic cancer Social History Housing: Apartment Alcohol intake: former Patient Tobacco Use Status: Current everyday Tobacco user Cigarettes Per Day: 9 Years Smoked: 29 years e-Cigarette/Vaping Use: Never Used service: No Current occupational status: employed 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 Jarod Barrera, iMranda Boudreaux, Daquan Cruz and colleagues, with an educational neeta from [employer]. Physical exam (Primary Care) Vital Signs: Last Vital Signs Temp 97.8 F 10/29/25 16:07 Pulse 62 10/29/25 16:07 Resp 14 10/29/25 16:07 BP 134/70 10/29/25 16:07 Pulse Ox 99 10/29/25 16:07 Oxygen Delivery Method Room Air 10/29/25 16:07 BMI result Body Mass Index 25.5 Tobacco/Smoking Status: Tobacco use Status Tobacco use date assessed 10/29/25 10/29/25 16:10 Patient Tobacco Use Status Current everyday Tobacco 10/29/25 16:10 e-Cigarette/Vaping Use Never Used 10/29/25 16:10 Thrive Assessment: Date of Thrive Assessment Date Thrive assessed 04/30/25 10/29/25 16:10 Coding Level of Care Code Est Pt Level 4 (51511) Add On Problem Visit Only Diagnoses Alcohol use disorder in remission F10.91 Cigarette smoker F17.210 Thyroid nodule E04.1 Assessment & Plan Assessment & Plan (1) Alcohol use disorder in remission: Code(s): F10.91 - Alcohol use, unspecified, in remission Category: Medical Plan: Commended on ongoing sobriety. Continue with social supports and abstinence (2) Cigarette smoker: Code(s): F17.210 - Nicotine dependence, cigarettes, uncomplicated Category: Social Hx Plan: Cessation advised. Referred for lung cancer screening (3) Thyroid nodule: Code(s): E04.1 - Nontoxic single thyroid nodule Category: Medical Plan: Highly suspicious nodule, urgent referral to endocrinology place Plan Follow-up in 6 months for annual physical exam Orders: Orders Basic Metabolic Panel Today E04.1 - Nontoxic single thyroid nodule, E78.5 - Hyperlipidemia, unspecified, F17.210 - Nicotine dependence, cigarettes, uncomplicated Lipid Panel Today E04.1 - Nontoxic single thyroid nodule, E78.5 - Hyperlipidemia, unspecified, F17.210 - Nicotine dependence, cigarettes, uncomplicated TSH reflex Free T4 Today E04.1 - Nontoxic single thyroid nodule, E04.9 - Nontoxic goiter, unspecified Referrals Endocrinology Referral E04.1 - Nontoxic single thyroid nodule, E04.9 - Nontoxic goiter, unspecified Lung Cancer Screening Referral F17.210 - Nicotine dependence, cigarettes, uncomplicated Medications: Refilled hydroxyzine HCl 25 mg PO BID PRN 180 tabs 1RF anxiety Patient Instructions: Check [email or web address] for counselors in the area
[2025-10-29 16:07] VITALS: BP 134/70; PULSE 62; RESP 14; TEMP 36.6; O2SAT 99; BMI 25.5
--- OUTSIDE RECORDS SUMMARY | 2025-10-29 20:47 | XMS_ITS | Encounter Summary ---
Author Organization [facility] Address [address] [place] [address] Phone Care Team Providers Care Aluminum Boat Assembly Supervisor Name Role Phone Jm Heredia MD Primary Care Provider Encounter Details Date Type Department Care Team (Late st Contact Info) Description 12/03/2020 Procedure Pass [facility], [facility] 2 [address] [facility], 2nd [place] [address] Social History Tobacco Use Types Packs/Day Years [...] on filedocumented in this encounter Care Teams Aluminum Boat Assembly Supervisor Relationship Specialty Start Date End Date Jm Heredia MD [address] [place] [address] [place] [address] PCP - General Internal Medicine 10/06/20 documented as of this encounter Additional Source Comments The information contained in this document represents components of the legal health record. It is not the complete legal health record.[facility]
--- OUTSIDE RECORDS SUMMARY | 2025-10-29 20:47 | XMS_ITS | Encounter Summary ---
Author Organization [facility] Address [address] [place] [address] Phone Care Team Providers Care Junior High School Teacher Name Role Phone Jm Heredia MD Primary Care Provider Encounter Details Date Type Department Care Team (Late st Contact Info) Description 12/01/2020 Procedure Pass [facility] PERIOPERATIVE DEPT [address] [place] [address] Social History Tobacco Use Types [...] on filedocumented in this encounter Care Teams Junior High School Teacher Relationship Specialty Start Date End Date Jm Heredia MD [address] [place] [address] [place] [address] PCP - General Internal Medicine 10/06/20 documented as of this encounter Additional Source Comments The information contained in this document represents components of the legal health record. It is not the complete legal health record.[facility]
--- OUTSIDE RECORDS SUMMARY | 2025-10-29 20:47 | XMS_ITS | Encounter Summary ---
Author Organization [facility] Address [address] [place] [address] Phone Care Team Providers Care Top Steep Tender Name Role Phone Jm Heredia MD Primary Care Provider Encounter Details Date Type Department Care Team (Late st Contact Info) Description 12/01/2020 Procedure Pass [facility] [place] - Peripoerative Interventional Radiology [address] [facility], 4th [place] [address] Social History Tobacco Use Types Packs/Day Years [...] on filedocumented in this encounter Care Teams Top Steep Tender Relationship Specialty Start Date End Date Jm Heredia MD [address] [place] [address] [place] [address] PCP - General Internal Medicine 10/06/20 documented as of this encounter Additional Source Comments The information contained in this document represents components of the legal health record. It is not the complete legal health record.[facility]
--- OUTSIDE RECORDS SUMMARY | 2025-10-29 20:47 | XMS_ITS | Encounter Summary ---
Author Organization [facility] Address [address] [place] [address] Phone Care Team Providers Care Washer And Capper Machine Operator Name Role Phone Jm Heredia MD Primary Care Provider Reason for Referral * MRI/CAT Scan - Closed Specialty Diagnoses / Procedures Referred By Radha schaefer Referred To Contact Radiology Diagnoses Cerebral AVM Procedures MRI 3D Reconstruction Functional Head Post-Procedure Addon JAYCE 3D RENDERING W/INTERP&POSTPROC DIFF WORK STATION Nenita Hernandez FNP Phone: tel: fax: mailto:[email or web address] Referral ID Status Reason Start Date Expiration Date Visits Re quested Visits Authorized [id number] Closed 12/22/2020 12/22/2020 1 1 Encounter Details Date Type Department Care Team (Late st Contact Info) Description 12/15/2020 Ancillary Orders For Login Purposes Only [address] [facility] [address] [place] [address] Nenita Hernandez FNP [address] [place] [address] [email or web address] Cerebral AVM Social History Tobacco Use Types [...] tractography The AVM nidus is surrounded by BENCH BORING MACHINE OPERATOR and SLF/arcuate fibers as described in the body of the report. The AVM nidus is posterior to the right frontal aslant tract and by at least 1 cm. NOTE: Functional maps and reconstructed white matter tracts are available in the working storage directory of the [facility] system for preoperative review. Please note that [...] AVM nidus. DTI tractography findings: Corticospinal tracts (BENCH BORING MACHINE OPERATOR): Right BENCH BORING MACHINE OPERATOR fibers appear focally effaced at the expected location of the right postcentral AVM nidus. Reconstructed BENCH BORING MACHINE OPERATOR fibers are seen immediately surrounding [...] AVM nidus. DTI tractography findings: Corticospinal tracts (BENCH BORING MACHINE OPERATOR): Right BENCH BORING MACHINE OPERATOR fibers appear focally effaced atthe [...] tractography The AVM nidus is surrounded by BENCH BORING MACHINE OPERATOR and SLF/arcuate fibers as described [...] system documented in this encounter Care Teams Washer And Capper Machine Operator Relationship Specialty Start Date End Date Jm Heredia MD [address] [place] [address] [place] [address] PCP - General Internal Medicine 10/06/20 documented as of this encounter Additional Source Comments The information contained in this document represents components of the legal health record. It is not the complete legal health record.[facility]
--- OUTSIDE RECORDS SUMMARY | 2025-10-29 20:47 | XMS_ITS | Encounter Summary ---
Author Organization [facility] Address [address] [place] [address] Phone Care Team Providers Care Molder Apprentice Name Role Phone Jm Heredia MD Primary Care Provider Encounter Details Date Type Department Care Team (Late st Contact Info) Description 12/15/2020 Procedure Pass [facility] 3DCTMR MG [address] [place] [address] Social History Tobacco Use Types Packs/Day Years [...] on filedocumented in this encounter Care Teams Molder Apprentice Relationship Specialty Start Date End Date Jm Heredia MD [address] [place] [address] [place] [address] PCP - General Internal Medicine 10/06/20 documented as of this encounter Additional Source Comments The information contained in this document represents components of the legal health record. It is not the complete legal health record.[facility]
--- OUTSIDE RECORDS SUMMARY | 2025-10-29 20:47 | XMS_ITS | Clinical Summary ---
Author Organization [facility] Address [address] [place] [address] Phone Care Team Providers Care Supervisor Evaporator Name Role Phone Jm Heredia MD Primary [...] this topic Medical Devices Implanted Type Area Button Buttonhole Marker Device Identifier Shelf Expiration Date Model / Serial / Lot Device Closure Mynxgrip 6-7fr Vascular Femoral Artery Atraumatic Tip Disp - Order In Multiples Of 11 - [id number] Implanted:Qty: 1 on 12/01/2020 by Branden Oglesby MD at [facility] Closure Device Right: [facility] 10/12/2022 [id number] / / [id number] Insurance [facility] Care Teams Supervisor Evaporator Relationship Specialty Start Date End Date Jm Heredia MD [address] [place] [address] [place] [address] PCP - General Internal Medicine 10/06/20 Additional Source Comments The information contained in this document represents components of the legal health record. It is not the complete legal health record.[facility]
--- OUTSIDE RECORDS SUMMARY | 2025-10-29 20:48 | XMS_ITS | Encounter Summary ---
Author Organization [facility] Address [address] [facility] 7t [place] [address] Care Team Providers Care Medical Photographer Name Role Phone Unavailable Primary Care Provider Unavailabl e Encounter Details Date Type Department Care Team (Latest Contact Info) Description 12/10/2019 Abstract [facility] CONVERSIONS Dental, Provider, DDS Social History [...]
--- OUTSIDE RECORDS SUMMARY | 2025-10-29 20:48 | XMS_ITS | Encounter Summary ---
Author Organization [facility] Address [address] [place] [address] Phone Care Team Providers Care Chemical Sprayer Name Role Phone Jm Heredia MD Primary Care Provider Reason for Referral * MRI/CAT Scan - Closed Specialty Diagnoses / Procedures Referred By Radha schaefer Referred To Contact Radiology Diagnoses Cerebral AVM Procedures MRI Brain CHG MRI BRAIN COMBO CHG FUNCTIONAL MRI BRAIN BY PHYS/PSYCH CHG 3D RENDERING W/INTERP & POSTPROCESS SUPERVISION Nenita Hernandez FNP Phone: tel: fax: mailto:[email or web address] Referral ID Status Reason Start Date Expiration Date Visits Re quested Visits Authorized [id number] Closed 12/22/2020 01/10/2021 1 1 Encounter Details Date Type Department Care Team (Late st Contact Info) Description 12/22/2020 Ancillary Orders [facility] [address] [place] [address], 7th Floor, [address] [place] [address] Nenita Hernandez FNP [address] [place] [phone] [email or web address] Cerebral AVM Social History Tobacco Use Types [...] tractography The AVM nidus is surrounded by DRAFTER and SLF/arcuate fibers as described in the body of the report. The AVM nidus is posterior to the right frontal aslant tract and by at least 1 cm. NOTE: Functional maps and reconstructed white matter tracts are available in the working storage directory of the [facility] system for preoperative review. Please note that [...] AVM nidus. DTI tractography findings: Corticospinal tracts (DRAFTER): Right DRAFTER fibers appear focally effaced at the expected location of the right postcentral AVM nidus. Reconstructed DRAFTER fibers are seen immediately surrounding the AVM [...] AVM nidus. DTI tractography findings: Corticospinal tracts (DRAFTER): Right DRAFTER fibers appear focally effaced atthe expected location [...] tractography The AVM nidus is surrounded by DRAFTER and SLF/arcuate fibers as described inthe body [...] system documented in this encounter Care Teams Chemical Sprayer Relationship Specialty Start Date End Date Jm Heredia MD [address] [place] [address] [place] [address] PCP - General Internal Medicine 10/06/20 documented as of this encounter Additional Source Comments The information contained in this document represents components of the legal health record. It is not the complete legal health record.[facility]
--- OUTSIDE RECORDS SUMMARY | 2025-10-29 20:48 | XMS_ITS | Encounter Summary ---
Author Organization [facility] Address [address] [place] [address] Phone Care Team Providers Care Automotive Glass Installer Name Role Phone Jm Heredia MD Primary Care Provider Encounter Details Date Type Department Care Team (Late st Contact Info) Description 11/27/2020 Prep for Surgery [facility] [address] [place] [address], 7th Floor, [address] [place] [address] Nenita Hernandez FNP [address] [place] [phone] [email or web address] Social History Tobacco Use Types Packs/Day Years [...] on filedocumented in this encounter Care Teams Automotive Glass Installer Relationship Specialty Start Date End Date Jm Heredia MD [address] [place] [address] [place] [address] PCP - General Internal Medicine 10/06/20 documented as of this encounter Additional Source Comments The information contained in this document represents components of the legal health record. It is not the complete legal health record.[facility]
--- OUTSIDE RECORDS SUMMARY | 2025-10-29 20:48 | XMS_ITS | Encounter Summary ---
Author Organization [facility] Address [address] [place] [address] Phone Care Team Providers Care Automobile Dealer Name Role Phone Jm Heredia MD Primary Care Provider Encounter Details Date Type Department Care Team (Late st Contact Info) Description 12/22/2020 Procedure Pass [facility], [facility] [address] [facility], 2nd [place] [address] Social History Tobacco Use Types Packs/Day Years [...] on filedocumented in this encounter Care Teams Automobile Dealer Relationship Specialty Start Date End Date Jm Heredia MD [address] [place] [address] [place] [address] PCP - General Internal Medicine 10/06/20 documented as of this encounter Additional Source Comments The information contained in this document represents components of the legal health record. It is not the complete legal health record.[facility]
--- OUTSIDE RECORDS SUMMARY | 2025-10-29 20:48 | XMS_ITS | Clinical Summary ---
Author Organization [employer] Address [address] [facility] 7t [place] [address] Care Team Providers Care Ambulatory Care Nurse Name Role Phone Unavailable Primary Care Provider Unavailabl e Allergies No known active allergies Medications hydrOXYzine HCl (Atarax) 25 MG tablet Take 25 mg by mouth 2 times daily. Active topiramate (Topamax Sprinkle) 25 MG capsule Take 25 mg by mouth 2 times daily. Active Encounters Date Type Department Care Team Description 08/12/2025 8:00 AM EDT Office Visit [facility] [address] [place] [phone] Ciera Greer 08/07/2025 Travel from Last 3 [...] Recently Relevant to Health Maintenance Insurance [address] [place] [phone] [facility] [address] [place] [id number] [place] [phone] [place] [id number] [place] [address], [place] [address]
== END 2025-10-29 16:30 | disposition home or self-care (01) ==
LOC: HO.HMCHD 16:02
PROVIDERS: PCP Physician Assistant; Visit Provider Physician Assistant
DX: F10.91 Alcohol use, unspecified, in remission (principal); F17.210 Nicotine dependence, cigarettes, uncomplicated; E04.1 Nontoxic single thyroid nodule

== ENCOUNTER 2025-11-03 09:58 | Day surgery (SDC) | payer OTHER, SELFPAY ==
--- OUTSIDE RECORDS SUMMARY | 2025-10-17 17:25 | XMS_ITS | Clinical Summary ---
Author Organization [employer] Address [address] [facility] 7t [place] [address] Care Team Providers Care Solar Pool Heating Installer Name Role Phone Unavailable Primary Care Provider Unavailabl e Allergies No known active allergies Medications hydrOXYzine HCl (Atarax) 25 MG tablet Take 25 mg by mouth 2 times daily. Active topiramate (Topamax Sprinkle) 25 MG capsule Take 25 mg by mouth 2 times daily. Active Encounters Date Type Department Care Team Description 08/12/2025 8:00 AM EDT Office Visit [facility] [address] [place] [address] Ciera Greer 08/07/2025 Travel from Last 3 [...] Recently Relevant to Health Maintenance Insurance [address] [place] [phone] [facility] [address] [place] [phone] [place] [phone] [place] [id number] [place] [address], [place] [address]
--- OUTSIDE RECORDS SUMMARY | 2025-10-17 17:25 | XMS_ITS ---
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 She was seen on August 06, 2025, at which time consultation for mohs surgery was performed.The patient presents for Mohs. Medications Medication Generic Name RxNorm Strength Strength Unit Route Dose Dose Form Frequency Date Started Date Ended Status Indication Sig hydroxyzine HCl 145489 25 mg Oral 1 table t QD active Problems Problem Code Type Status Date of Diagnosis Da te of Resolution Basal cell carcinoma of face (disorder) 506466244(SNO MED) Diagnosis active 08/06/2025 Anxiety disorder (disorder) 561324086(SNO MED) Problem active History of clinical finding in subject (situation) 478579392(SNO MED) Problem active Basal cell carcinoma of skin (disorder) 558859045(SNO MED) Problem active Basal cell carcinoma of face (disorder) 769143008(SNO MED) Diagnosis active 10/17/2025 Results No data Encounters Service provided at [facility], [address] [place] [address], [address], [place], [place] [id number]. Office phonenumber is [phone]. Office fax number is [phone]. Encounter Diagnosis Location Date / Time Type Disc harge Status Nodular Basal Cell Carcinoma (C44.319)MIPS () [facility] 10/17/2025 12:15:00 UTC NI Reason For Referral No data Procedures Procedure Date Documentation of current medications (pr ocedure) 10/17/2025 12:00 am UTC Smoking effects education (procedure) 12:00 am UTC Mohs surgery (procedure) 10/17/2025 12:0 0 am UTC Documentation of current medications (pr ocedure) 08/06/2025 12:00 am [place] Smoking cessation education (procedure) 08/06/2025 12:00 am [facility] Documentation of past medical history (p rocedure) Documentation of past medical history (p rocedure) Documentation of past medica l history (procedure) Disectomy L5 2015Tonsils c-sections 2000 Review Of Systems Provider reviewed on Oct 17, 2025.A focused review of systems was performed including Allergic / Immunologic, Cardiovascular, Constitutional / Symptom, Eyes, Hematologic / Lymphatic, Integumentary, Neurological, Psychiatric, and Respiratory and was notable for anxiety.No Problems With Healing, No Problems With Scarring (hypertrophic Or Keloid), No Problems With Bleeding, No Immunosuppression, No Chest Pain, No Fever Or Chills, No Blurry Vision, No Headaches, No Seizures, No Shortness Of Breath,And No Depression. Assessment 1.Nodular Basal Cell Carcinoma, Status: Inadequately ControlledMohs Surgery: right inferior nasal cheek; Consent Type - Use Body Location To Select Appropriate Consent; Eye Shield Used - No; Surgeon Performing Repair - Bill Cobb; Number of Stages - 1; Primary Defect Length in cm (Final Defect Size - Required for Flaps/Grafts) - 0.9; Primary Defect Width in cm (Final Defect Size - Required for Flaps/Grafts) - 0.8; Repair type - Complex Repair; Postop Diagnosis - same.2.MIPSCounseling Plan of Care Future visit for 10/27/2025 - Follow up in 10 days for: Suture Removal. Other Instructions: 10/27/25. Other Instructions: 10/27/25. Instructions * I counseled the patient regarding the following:Treatment: Discontinue tobacco use can very difficult. There are many methods which can help including: medication, nicotine supplementation and cognitive or behavioral therapy.Expectations: Tobacco use is detrimental to your health. Discontinuing tobacco use results in immediate health benefits.Contact Office if: You are unable to stop using tobacco. Social History Code Activity Start Date End Date [id number] (SNOMED) Current every day smoker Sex Female Sexual orientation Don't Know Gender identity Unspecified Vital Signs Vital Sign Measurement Date Recorded Heart Rate 67 /min MonOct 17 12:30 :20 [facility] 2024 Systolic Blood Pressure 131 mm[Hg] MonOct 17 12:30:20 [facility] 2024 Diastolic Blood Pressure 54 mm[Hg] MonOct 17 12:30:20 [facility] 2024 Insurances Coverage Status Coverage Type Relationship to Subscriber Member Identifier Subscriber Identifier Group Identifier Payer Identifier Active Self [id number] JOLLY
--- OUTSIDE RECORDS SUMMARY | 2025-10-17 17:25 | XMS_ITS | Encounter Summary ---
Author Organization [employer] [facility] Address [address] [facility] 7t [place] [address] Care Team Providers Care Cover Maker Name Role Phone Unavailable Primary Care Provider Unavailabl e Encounter Details Date Type Department Care Team (Latest Contact Info) Description 12/10/2019 Abstract [facility] CONVERSIONS Dental, Provider, DDS Social History [...]
--- OUTSIDE RECORDS SUMMARY | 2025-10-17 17:25 | XMS_ITS | Encounter Summary ---
Author Organization [facility] Address [address] [place] [address] Phone Care Team Providers Care Manager Product Name Role Phone Jm Heredia MD Primary Care Provider Encounter Details Date Type Department Care Team (Late st Contact Info) Description 12/01/2020 Procedure Pass [facility] PERIOPERATIVE DEPT [address] [place] [address] Social History Tobacco Use Types [...] on filedocumented in this encounter Care Teams Manager Product Relationship Specialty Start Date End Date Jm Heredia MD [address] [place] [address] [place] [address] PCP - General Internal Medicine 10/06/20 documented as of this encounter Additional Source Comments The information contained in this document represents components of the legal health record. It is not the complete legal health record.[facility]
--- OUTSIDE RECORDS SUMMARY | 2025-10-17 17:25 | XMS_ITS | Encounter Summary ---
Author Organization [facility] Address [address] [place] [address] Phone Care Team Providers Care Community Marketing Coordinator Name Role Phone Jm Heredia MD Primary Care Provider Encounter Details Date Type Department Care Team (Late st Contact Info) Description 12/22/2020 Procedure Pass [facility], [facility] 2 [address] [facility], 2nd [place] [address] Social History Tobacco Use Types Packs/Day Years [...] on filedocumented in this encounter Care Teams Community Marketing Coordinator Relationship Specialty Start Date End Date Jm Heredia MD [address] [place] [address] [place] [address] PCP - General Internal Medicine 10/06/20 documented as of this encounter Additional Source Comments The information contained in this document represents components of the legal health record. It is not the complete legal health record.[facility]
--- OUTSIDE RECORDS SUMMARY | 2025-10-17 17:25 | XMS_ITS | Encounter Summary ---
Author Organization [facility] Address [address] [place] [address] Phone Care Team Providers Care Patient Admitting Representative Name Role Phone Jm Heredia MD Primary Care Provider Encounter Details Date Type Department Care Team (Late st Contact Info) Description 12/03/2020 Procedure Pass [facility], [facility] 2 [address] [facility], 2nd [place] [address] Social History Tobacco Use Types Packs/Day Years [...] on filedocumented in this encounter Care Teams Patient Admitting Representative Relationship Specialty Start Date End Date Jm Heredia MD [address] [place] [address] [place] [address] PCP - General Internal Medicine 10/06/20 documented as of this encounter Additional Source Comments The information contained in this document represents components of the legal health record. It is not the complete legal health record.[facility]
--- OUTSIDE RECORDS SUMMARY | 2025-10-17 17:25 | XMS_ITS | Encounter Summary ---
Author Organization [facility] Address [address] [place] [address] Phone Care Team Providers Care Product Technician Name Role Phone Jm Heredia MD Primary Care Provider Encounter Details Date Type Department Care Team (Late st Contact Info) Description 12/15/2020 Procedure Pass [facility] 3DCT[facility] MG [address] [place] [address] Social History Tobacco Use Types Packs/Day Years [...] on filedocumented in this encounter Care Teams Product Technician Relationship Specialty Start Date End Date Jm Heredia MD [address] [place] [address] [place] [address] PCP - General Internal Medicine 10/06/20 documented as of this encounter Additional Source Comments The information contained in this document represents components of the legal health record. It is not the complete legal health record.[facility]
--- OUTSIDE RECORDS SUMMARY | 2025-10-17 17:25 | XMS_ITS | Encounter Summary ---
Author Organization [facility] Address [address] [place] [address] Phone Care Team Providers Care Bottle Label Inspector Name Role Phone Jm Heredia MD Primary Care Provider Encounter Details Date Type Department Care Team (Late st Contact Info) Description 12/01/2020 Procedure Pass [facility] Imaging - Peripoerative Interventional Radiology [address] [facility], 4th [place] [address] Social History Tobacco Use Types Packs/Day Years [...] on filedocumented in this encounter Care Teams Bottle Label Inspector Relationship Specialty Start Date End Date Jm Heredia MD [address] [place] [address] [place] [address] PCP - General Internal Medicine 10/06/20 documented as of this encounter Additional Source Comments The information contained in this document represents components of the legal health record. It is not the complete legal health record.[facility]
--- OUTSIDE RECORDS SUMMARY | 2025-10-17 17:25 | XMS_ITS | Encounter Summary ---
Author Organization [facility] Address [address] [place] [address] Phone Care Team Providers Care Reed Polisher Name Role Phone Jm Heredia MD Primary Care Provider Reason for Referral * MRI/CAT Scan - Closed Specialty Diagnoses / Procedures Referred By Radha schaefer Referred To Contact Radiology Diagnoses Cerebral AVM Procedures MRI Brain CHG MRI BRAIN COMBO CHG FUNCTIONAL MRI BRAIN BY PHYS/PSYCH CHG 3D RENDERING W/INTERP & POSTPROCESS SUPERVISION Nenita Hernandez FNP Phone: tel: fax: mailto:[email or web address] Referral ID Status Reason Start Date Expiration Date Visits Re quested Visits Authorized [id number] Closed 12/22/2020 01/10/2021 1 1 Encounter Details Date Type Department Care Team (Late st Contact Info) Description 12/22/2020 Ancillary Orders [facility] [place] [address] [place] [address], 7th [address] [place] [address] Nenita Hernandez FNP [address] [place] [phone] [email or web address] Cerebral AVM Social History Tobacco Use Types [...] tractography The AVM nidus is surrounded by ACCOUNTANT and SLF/arcuate fibers as described in the body of the report. The AVM nidus is posterior to the right frontal aslant tract and by at least 1 cm. NOTE: Functional maps and reconstructed white matter tracts are available in the working storage directory of the [employer] system for preoperative review. Please note that [...] AVM nidus. DTI tractography findings: Corticospinal tracts (ACCOUNTANT): Right ACCOUNTANT fibers appear focally effaced at the expected location of the right postcentral AVM nidus. Reconstructed ACCOUNTANT fibers are seen immediately surrounding the AVM [...] AVM nidus. DTI tractography findings: Corticospinal tracts (ACCOUNTANT): Right ACCOUNTANT fibers appear focally effaced atthe expected location [...] tractography The AVM nidus is surrounded by ACCOUNTANT and SLF/arcuate fibers as described inthe body [...] system documented in this encounter Care Teams Reed Polisher Relationship Specialty Start Date End Date Jm Heredia MD [address] [place] [address] [place] [address] PCP - General Internal Medicine 10/06/20 documented as of this encounter Additional Source Comments The information contained in this document represents components of the legal health record. It is not the complete legal health record.[facility]
--- OUTSIDE RECORDS SUMMARY | 2025-10-17 17:25 | XMS_ITS | Encounter Summary ---
Author Organization [facility] Address [address] [place] [address] Phone Care Team Providers Care Director Of Head Start Name Role Phone Jm Heredia MD Primary Care Provider Encounter Details Date Type Department Care Team (Late st Contact Info) Description 11/27/2020 Prep for Surgery [facility] Neurosurgery [address] [facility], 7th Floor, [address] [place] [address] Nenita Hernandez ENGINEERING TECH [address] [place] [address] [email or web address] Social History Tobacco Use Types Packs/Day Years [...] on filedocumented in this encounter Care Teams Director Of Head Start Relationship Specialty Start Date End Date Jm Heredia MD [address] [place] [address] [place] [address] PCP - General Internal Medicine 10/06/20 documented as of this encounter Additional Source Comments The information contained in this document represents components of the legal health record. It is not the complete legal health record.[facility]
--- OUTSIDE RECORDS SUMMARY | 2025-10-17 17:25 | XMS_ITS | Clinical Summary ---
Author Organization [facility] Address [address] [facility] [address] [place] [address] Phone Care Team Providers Care Circular Ripsaw Operator Name Role Phone Jm Heredia MD [...] this topic Medical Devices Implanted Type Area Business Development Coordinator Device Identifier Shelf Expiration Date Model / Serial / Lot Device Closure Mynxgrip 6-7fr Vascular Femoral Artery Atraumatic Tip Disp - Order In Multiples Of 11 - [id number] Implanted:Qty: 1 on 12/01/2020 by Branden Oglesby MD at [facility] Closure Device Right: [facility] 10/12/2022 [id number] / / [id number] Insurance [facility] [employer] Care Teams Circular Ripsaw Operator Relationship Specialty Start Date End Date Jm Heredia MD [address] [place] [address] [place] [address] PCP - General Internal Medicine 10/06/20 Additional Source Comments The information contained in this document represents components of the legal health record. It is not the complete legal health record.[facility]
--- OUTSIDE RECORDS SUMMARY | 2025-10-17 17:25 | XMS_ITS | Encounter Summary ---
Author Organization [facility] Address [address] [facility] [address] [facility] [address] [place] [address] Phone Care Team Providers Care Sales Agent Name Role Phone Jm Heredia MD Primary Care Provider Reason for Referral * MRI/CAT Scan - Closed Specialty Diagnoses / Procedures Referred By Radha schaefer Referred To Contact Radiology Diagnoses Cerebral AVM Procedures MRI 3D Reconstruction Functional Head Post-Procedure Addon JAYCE 3D RENDERING W/INTERP&POSTPROC DIFF WORK STATION Nenita Hernandez FNP Phone: tel: fax: mailto:[email or web address] Referral ID Status Reason Start Date Expiration Date Visits Re quested Visits Authorized [id number] Closed 12/22/2020 12/22/2020 1 1 Encounter Details Date Type Department Care Team (Late st Contact Info) Description 12/15/2020 Ancillary Orders For Login Purposes Only [address] [facility] [address] [place] [address] Nenita Hernandez FNP [address] [place] [address] [email or web address] Cerebral AVM Social History Tobacco [...] tractography The AVM nidus is surrounded by WOOLING MACHINE OPERATOR and SLF/arcuate fibers as described in the body of the report. The AVM nidus is posterior to the right frontal aslant tract and by at least 1 cm. NOTE: Functional maps and reconstructed white matter tracts are available in the working storage directory of the [employer] system for preoperative review. Please note that [...] AVM nidus. DTI tractography findings: Corticospinal tracts (WOOLING MACHINE OPERATOR): Right WOOLING MACHINE OPERATOR fibers appear focally effaced at the expected location of the right postcentral AVM nidus. Reconstructed WOOLING MACHINE OPERATOR fibers are seen immediately surrounding the AVM [...] AVM nidus. DTI tractography findings: Corticospinal tracts (WOOLING MACHINE OPERATOR): Right WOOLING MACHINE OPERATOR fibers appear focally effaced atthe expected location [...] tractography The AVM nidus is surrounded by WOOLING MACHINE OPERATOR and SLF/arcuate fibers as described inthe body [...] system documented in this encounter Care Teams Sales Agent Relationship Specialty Start Date End Date Jm Heredia MD [address] [place] [address] [place] [address] PCP - General Internal Medicine 10/06/20 documented as of this encounter Additional Source Comments The information contained in this document represents components of the legal health record. It is not the complete legal health record.[facility]
--- NOTE | 2025-10-29 14:57 | P.CONAN_ITS ---
Documented by User: Ashley Aj NP 10/29/25 15:04 HPI - Anesthesia Eval Consult details Narrative: 55 yr old female for colonoscopy AVM: MRA of head updated 05/2025, stable Thyroid nodules: normal TSH 04/2025, referred to endocrine for monitoring of nodules and consideration for biopsy Nicotene dependence [facility] Active Problems Active Problems: All Active Problems (Updated 10/07/25 @ 14:06 by Gianni Hou MD) LGSIL on Pap smear of cervix (Acute) Screen for sexually transmitted diseases (Acute) Hx of abnormal cervical Pap smear (Acute) Well woman exam with routine gynecological exam (Acute) Thyroid nodule (Acute) Atypical nevus (Acute) Cigarette smoker (Acute) Alcohol use disorder in remission (Acute) AVM (arteriovenous malformation) brain (Acute) Goiter (Acute) Routine medical exam (Acute) Past Medical History Medical History (Updated 10/30/25 @ 14:00 by Lucy Amin RN) Thyroid nodule HLD (hyperlipidemia) Status post radiation therapy Cigarette smoker Alcohol use disorder in remission Anxiety Headache AVM (arteriovenous malformation) brain Goiter Family History Family History Mother CAD (coronary artery disease) of artery bypass graft Arterial occlusive disease Diabetes Sister Diabetes Father Metastatic cancer Surgical History Surgical History History of bilateral tubal ligation H/O cone biopsy of cervix S/P tonsillectomy H/O lumbar discectomy S/P radiation therapy > 12 wks ago Social History Social History Housing: Apartment Alcohol intake: former Patient Tobacco Use Status: Current everyday Tobacco user Tobacco use type: Cigarette Cigarettes Per Day: 9 Years Smoked: 29 years e-Cigarette/Vaping Use: Never Used Use of substances other than those prescribed or required for medical reasons: No Advance Directives: No Advance Directives Information Provided: Yes service: No Current occupational status: employed 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 Redemonstration of a tiny AVM in the right lateral frontoparietal junction, with nidus currently measuring approximately 2 x 2 mm, previously 3 x 5 mm in 2021. There are 2 associated mildly prominent draining cortical veins again noted. 2. There is no evidence of additional aneurysm or AVM. 3. The remainder of the examination is normal, with normal anatomical variation as discussed. Thyroid US 05/2025 IMPRESSION: 3 x 4 x 3 mm highly suspicious nodule in the midportion of the right thyroid lobe. Follow-up is recommended to document stability. Documented by User: Babak Oneal MD 11/03/25 12:43 [facility] Past Medical History Medical History (Updated 10/30/25 @ 14:00 by Lucy Amin RN) Thyroid nodule HLD (hyperlipidemia) Status post radiation therapy Cigarette smoker Alcohol use disorder in remission Anxiety Headache AVM (arteriovenous malformation) brain Goiter Family History Family History Mother CAD (coronary artery disease) of artery bypass graft Arterial occlusive disease Diabetes Sister Diabetes Father Metastatic cancer Family history of problems with anesthesia: No Surgical History Surgical History History of bilateral tubal ligation H/O cone biopsy of cervix S/P tonsillectomy H/O lumbar discectomy S/P radiation therapy > 12 wks ago History of Problems with Anesthesia: No Social History Social History Housing: Apartment Alcohol intake: former Patient Tobacco Use Status: Current everyday Tobacco user Tobacco use type: Cigarette Cigarettes Per Day: 9 Years Smoked: 29 years e-Cigarette/Vaping Use: Never Used Use of substances other than those prescribed or required for medical reasons: No Advance Directives: No Advance Directives Information Provided: Yes service: No Current occupational status: employed 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 Cognitive needs: No Hearing needs: No Vision needs: No Meds Allergies Allergy/AdvReac Type Severity Reaction Status Date / Time No Known Allergies Allergy Unverified 10/29/25 16:04 Exam Airway Mallampati Class: I TM Dist: <=3cm Neck ROM: Full Loose/Missing/Broken Teeth: No Heart: ok Lungs: ok Assessment and Plan Assessment Anesthesia Assessment: Anesthesia Plan Discussed and Chart Reviewed Final Anesthetic Review Family History of Problems with Anesthesia: No History of Problems with Anesthesia: No NPO: Yes ASA Class: II Final Preanesthetic Review: No Changes in Pt Med Stat, Meds/Allgs Chart Reviewed, Consent Obtained/Reviewed and Anes Risks/Benef Reviewed Patient Risk: Intermediate Procedure Risk: Low Anesthetic Plan Anesthetic Plan: MAC: and Agree w/ Assess. and Plan Disposition: Standard PACU
[2025-10-30 14:01] VITALS: BMI 25.5
[2025-11-03 10:09] VITALS: BMI 25.1
[2025-11-03 10:24] VITALS: BP 132/48; PULSE 91; RESP 16; TEMP 36.6; O2SAT 99
[2025-11-03] MEDS: Lactated Ringers 1,000 ML 100 ML IVCONT (10:25)
--- NOTE | 2025-11-03 10:42 | MHC.SHP ---
Pre-Procedural Eval Section A - 24 Hr Update-Section A only Date of Service: 11/03/25 The patient is an INPATIENT: No The patient has been examined within 24 hours of the surgical procedure. The History & Physical has been completed within 30 days and I have reviewed it.: No Section B - Complete if H&P > 30 days Chief Complaint: screening Relevant Family History (Specify if Yes): No Relevant Social History: Tobacco Use Present Medications: see Short Stay Collaborative assessment Medical History: Significant History (Cigarette smoker Alcohol use disorder in remission Anxiety Status post radiation therapy Headache AVM (arteriovenous malformation) brain Goiter) History of Previous Operations: Relevant previous surgery/procedure and date(s) (S/P tonsillectomy H/O lumbar discectomy S/P radiation therapy > 12 wks ago) Allergies: Allergies Allergy/AdvReac Type Severity Reaction Status Date / Time No Known Allergies Allergy Unverified 10/29/25 16:04 Review of Systems Sugical H&P ROS: Negative: Constitution, Cardiovascular, Respiratory and Gastrointestinal Exam Surgical H&P Exam: Normal: Heart, Normal: Lungs, Normal: Extremities and Normal: Abdomen Plan Diagnosis/Plan: Unchanged I have reviewed the history and physical and performed a pertinent physical examination on my patient. No changes have occurred unless specified. Time Spent With Patient Time: Total time managing care of this patient today ____ minutes.
--- NOTE | 2025-11-03 12:57 | HO.OPN-COLON ---
Colonoscopy Operative Note Operative Note Date of Service: 11/03/25 Narrative: COLONOSCOPY TILL CECUM WITH SNARE POLYPECTOMY, SUBMUCOSAL INJECTION AND HEMOCLIP PLACEMENT Pre-op diagnosis: Colon cancer screening (First colon). Post-op diagnosis:? Cecal AVM, Colon polyp, Diverticulosis, Endoscopist:? Anabella Craig MD Anesthesia:?MAC Consent: Indications for the procedure and potential complications of bleeding, perforation, reaction to medications and missed diagnosis were discussed with the patient and informed consent was obtained. Instrument: Olympus PCF H 190 L variable stiffness pediatric colonoscope Monitoring: Vital signs and clinical assessment, intermittent blood pressure monitoring, continuous EKG monitoring, Pulse oximetry and Carbon Dioxide monitoring were done throughout the procedure. Please see anesthesia flowsheet. Colon withdrawl time was 20 minutes. Procedure: The patient was placed in the left lateral decubitis position and pre-procedure medications were administered. After a digital rectal examination of the ano-rectum, the video colonoscope was inserted into the rectum and advanced through the colon to the cecum. The colonoscope was slowly withdrawn in a retrograde panoramic fashion and the colon mucosa was carefully examined including a retroflexed view of the rectum. Findings and interventions are described below. Procedure Difficulty: without difficulty Findings: Terminal Ileum: Not evaluated Cecum: A 15 mm non-bleeding AVM in the cecum Ascending Colon: Normal Transverse Colon: A 1.5 to 1.8 cms flat polyp in the proximal transverse colon at 80 cms Polyp was raised with 3 cc of Eleview and removed with a stiff hot snare. Polypectomy site was closed with 1 hemoclip. Descending Colon: Normal Sigmoid Colon: Moderate diverticulosis Rectum: Normal Ano-rectum: Normal Colon preparation: Good after some irrigation. [place] Bowel Preparation Scale Right colon; 2 Transverse colon: 2 Left colon; 2 (0 = Unprepared colon segment with mucosa not seen due to solid stool that cannot be cleared. 1 = Portion of mucosa of the colon segment seen, but other areas of the colon segment not well seen due to staining, residual stool and/or opaque liquid. 2 = Minor amount of residual staining, small fragments of stool and/or opaque liquid, but mucosa of colon segment seen well. 3 = Entire mucosa of colon segment seen well with no residual staining, small fragments of stool or opaque liquid) Impression and Post Procedure Diagnosis: Colonoscopy Findings: One medium sized polyp was removed Moderate diverticulosis seen in the sigmoid colon Plan: I will send a letter with biopsy results. Repeat Colonoscopy in 3-5 years if polyps are adenomatous and 10 year if polyps are hyperplastic. Above findings were reviewed with the patient and relevant handouts were given and the discharge area. BIOPSIES SHOWED: Colon, transfer at 80 cm, polyp: Sessile serrated lesion/polyp without dysplasia Letter sent to the patient with biopsy results. Patient was placed on the colonoscopy recall list for repeat colonoscopy in 3 years.
[2025-11-03 13:02] VITALS: BP 111/48; PULSE 70; RESP 16; TEMP 36.1; O2SAT 97
[2025-11-03 13:12] VITALS: BP 112/54; PULSE 67; RESP 16; TEMP 36.1; O2SAT 99
== END 2025-11-03 13:37 | disposition home or self-care (01) ==
PROVIDERS: PCP Physician Assistant; Visit Provider Internal Medicine Gastroenterology
PROC: 0DJD8ZZ Inspection of Lower Intestinal Tract, Via Natural or Artificial Opening Endoscopic (ICD-10-PCS; CPT 45378; principal; 2025-11-03 11:20)
DX: Z12.11 Encounter for screening for malignant neoplasm of colon (principal); K55.20 Angiodysplasia of colon without hemorrhage; K57.30 Diverticulosis of large intestine without perforation or abscess without bleeding; D12.3 Benign neoplasm of transverse colon
CPT/HCPCS: 45385; 88305; J2003; J2704

== ENCOUNTER → 2025-11-03 09:58 | Outpatient (BNV) | payer OTHER, SELFPAY | PROVIDERS: PCP Physician Assistant; Visit Provider Internal Medicine Gastroenterology | DX: Z12.11 Encounter for screening for malignant neoplasm of colon (principal); K55.20 Angiodysplasia of colon without hemorrhage; K63.5 Polyp of colon; K57.30 Diverticulosis of large intestine without perforation or abscess without bleeding | CPT/HCPCS: 45385 ==

== ENCOUNTER 2025-11-11 12:00 | Outpatient (AMB) | payer OTHER, SELFPAY ==
--- NOTE | 2025-11-11 12:06 | A.OFFVIS_ITS ---
Vital Signs 11/11/25 12:07 Height 5 ft 5 in Weight 151 lb BMI 25.1 BP 140/70 H Intake Visit Reasons: 3-4 colpo results Delivery Man Required: No Information Interpreted: non-clinical & clinical Accompanied by: Self / Same As Patient Allergies No Known Allergies Allergy (Unverified 11/11/25 12:09) Post menopausal: Yes HPI Comments Details: Presenting post colpo for follow-up. The patient is doing well with no complaints. The pathology showed the following: A. Endocervix, curettage: - Small focus of atypical squamous epithelium. - Relatively abundant fragments of squamous epithelium within normal limits. - No endocervical epithelium identified. B. Cervix, 3 o'clock, biopsy: - Mildly inflamed squamous mucosa with reactive changes. - No endocervical epithelium identified. C. Cervix, 4 o'clock, biopsy: - Mildly inflamed squamous mucosa with reactive changes. - No endocervical epithelium identified. D. Cervix, 6 o'clock, biopsy: - Mildly inflamed squamous mucosa with reactive changes. - No endocervical epithelium identified. E. Cervix, 12 o'clock, biopsy: - Mildly inflamed squamous mucosa with reactive changes. - No endocervical epithelium identified. Comment: The small focus of atypical squamous epithelium in part A has similar overall features as seen in the patient's recent Pap ([id number]; LSIL with negative HPV); however, this focus is quite small [facility] Medical History Thyroid nodule HLD (hyperlipidemia) Status post radiation therapy Cigarette smoker Alcohol use disorder in remission Anxiety Headache AVM (arteriovenous malformation) brain Goiter Surgical History History of bilateral tubal ligation H/O cone biopsy of cervix S/P tonsillectomy H/O lumbar discectomy S/P radiation therapy > 12 wks ago Family History Mother CAD (coronary artery disease) of artery bypass graft Arterial occlusive disease Diabetes Sister Diabetes Father Metastatic cancer Social History Housing: Apartment Alcohol intake: former Patient Tobacco Use Status: Current everyday Tobacco user Tobacco use type: Cigarette Cigarettes Per Day: 9 Years Smoked: 29 years e-Cigarette/Vaping Use: Never Used service: No Current occupational status: employed 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 Cognitive needs: No Hearing needs: No Vision needs: No Female Reproductive History Menstrual Age of Menarche: 13 Review of Systems Const All systems reviewed & are unremarkable except as noted in HPI and below Reports as per HPI and Reports no additional complaints GI Reports no additional complaints Reports no additional complaints Physical Exam Vital Signs: Last Vital Signs BP 140/70 H 11/11/25 12:07 BMI result Body Mass Index 25.1 Assessment & Plan Assessment & Plan (1) LGSIL on Pap smear of cervix: Code(s): R87.612 - Low grade squamous intraepithelial lesion on cytologic smear of cervix (LGSIL) Category: Medical Plan: Discussed with the patient the pathology results of the colposcopy biopsies & endocervical curettage ( mild dysplasia-SELAM 1). Discussed with the patient the sensitivity specificity, positive and negative predictive value in detecting cervical cancer in addition discussed the regression, persistence and progression rates. Recommended co-testing in 12 months, if cytology and or HPV are abnormal will proceed was colposcopy biopsy and endocervical curettage, if lesions gets worse or stays persistent for 2 years will proceed with loop electric excision procedure. Instructions given to the patient to schedule a co test appointment in 1 year. All questions answered the patient verbalized understanding. Coding Level of Care Code Est Pt Level 3 (33009) Diagnoses LGSIL on Pap smear of cervix R87.612
[2025-11-11 12:07] VITALS: BP 140/70; BMI 25.1
--- OUTSIDE RECORDS SUMMARY | 2025-11-11 16:03 | XMS_ITS | Encounter Summary ---
Author Organization [facility] Address [address] [place] [address] Phone Care Team Providers Care Reservation Clerk Name Role Phone Jm Heredia MD Primary Care Provider Reason for Referral * MRI/CAT Scan - Closed Specialty Diagnoses / Procedures Referred By Radha schaefer Referred To Contact Radiology Diagnoses Cerebral AVM Procedures MRI 3D Reconstruction Functional Head Post-Procedure Addon JAYCE 3D RENDERING W/INTERP&POSTPROC DIFF WORK STATION Nenita Hernandez FNP Phone: tel: fax: mailto:[email or web address] Referral ID Status Reason Start Date Expiration Date Visits Re quested Visits Authorized [id number] Closed 12/22/2020 12/22/2020 1 1 Encounter Details Date Type Department Care Team (Late st Contact Info) Description 12/15/2020 Ancillary Orders For Login Purposes Only [address] [facility] [address] [place] [address] Nenita Hernandez FNP [address] [place] [address] [email or web address] Cerebral AVM Social History Tobacco Use Types [...] tractography The AVM nidus is surrounded by BENEFITS ANALYST and SLF/arcuate fibers as described in the body of the report. The AVM nidus is posterior to the right frontal aslant tract and by at least 1 cm. NOTE: Functional maps and reconstructed white matter tracts are available in the working storage directory of the [employer] system for preoperative review. Please note that [...] AVM nidus. DTI tractography findings: Corticospinal tracts (BENEFITS ANALYST): Right BENEFITS ANALYST fibers appear focally effaced at the expected location of the right postcentral AVM nidus. Reconstructed BENEFITS ANALYST fibers are seen immediately surrounding the AVM [...] AVM nidus. DTI tractography findings: Corticospinal tracts (BENEFITS ANALYST): Right BENEFITS ANALYST fibers appear focally effaced atthe expected location [...] tractography The AVM nidus is surrounded by BENEFITS ANALYST and SLF/arcuate fibers as described inthe body [...] system documented in this encounter Care Teams Reservation Clerk Relationship Specialty Start Date End Date Jm Heredia MD [address] [place] [address] [place] [address] PCP - General Internal Medicine 10/06/20 documented as of this encounter Additional Source Comments The information contained in this document represents components of the legal health record. It is not the complete legal health record.[facility]
--- OUTSIDE RECORDS SUMMARY | 2025-11-11 16:03 | XMS_ITS | Clinical Summary ---
Author Organization [facility] Address [address] [place] [address] Phone Care Team Providers Care Form Coverer Name Role Phone Jm Heredia MD Primary [...] this topic Medical Devices Implanted Type Area Malt House Kiln Operator Device Identifier Shelf Expiration Date Model / Serial / Lot Device Closure Mynxgrip 6-7fr Vascular Femoral Artery Atraumatic Tip Disp - Order In Multiples Of 11 - [id number] Implanted:Qty: 1 on 12/01/2020 by Branden Oglesby MD at [facility] Closure Device Right: [facility] 10/12/2022 [id number] / / [id number] [facility] Care Teams Form Coverer Relationship Specialty Start Date End Date Jm Heredia MD [address] [place] [address] [place] [address] PCP - General Internal Medicine 10/06/20 Additional Source Comments The information contained in this document represents components of the legal health record. It is not the complete legal health record.[facility]
--- OUTSIDE RECORDS SUMMARY | 2025-11-11 16:03 | XMS_ITS | Clinical Summary ---
Author Organization [employer] Address [address] [facility] 7t [place] [address] Care Team Providers Care Data Control Clerk Supervisor Name Role Phone Unavailable Primary Care Provider Unavailabl e Allergies No known active allergies Medications hydrOXYzine HCl (Atarax) 25 MG tablet Take 25 mg by mouth 2 times daily. Active topiramate (Topamax Sprinkle) 25 MG capsule Take 25 mg by mouth 2 times daily. Active Encounters Date Type Department Care Team Description 08/12/2025 8:00 AM EDT Office Visit [facility] [address] [place] [id number] Ciera Greer from Last 3 Months Social History Tobacco [...] Recently Relevant to Health Maintenance Insurance [address] [place] [id number] [facility] [address] [place] [address] [id number] [place] [id number] [place] [id number] [place] [id number]
--- OUTSIDE RECORDS SUMMARY | 2025-11-11 16:03 | XMS_ITS | Encounter Summary ---
Author Organization [facility] Address [address] [place] [address] Phone Care Team Providers Care Business Job Titles Name Role Phone Jm Heredia MD Primary Care Provider Encounter Details Date Type Department Care Team (Late st Contact Info) Description 12/01/2020 Procedure Pass [facility] PERIOPER[facility]IVE DEPT [address] [place] [address] Social History Tobacco Use Types [...] on filedocumented in this encounter Care Teams Business Job Titles Relationship Specialty Start Date End Date Jm Heredia MD [address] [place] [address] [place] [address] PCP - General Internal Medicine 10/06/20 documented as of this encounter Additional Source Comments The information contained in this document represents components of the legal health record. It is not the complete legal health record.[facility]
--- OUTSIDE RECORDS SUMMARY | 2025-11-11 16:03 | XMS_ITS | Encounter Summary ---
Author Organization [facility] Address [address] [facility] 7t [place] [address] Care Team Providers Care Police Specialist Name Role Phone Unavailable Primary Care Provider Unavailabl e Encounter Details Date Type Department Care Team (Latest Contact Info) Description 12/10/2019 Abstract [facility] CONVERSIONS Dental, Provider, DDS Social History [...]
--- OUTSIDE RECORDS SUMMARY | 2025-11-11 16:03 | XMS_ITS | Encounter Summary ---
Author Organization [facility] Address [address] [place] [address] Phone Care Team Providers Care Valet Manager Name Role Phone Jm Heredia MD Primary Care Provider Reason for Referral * MRI/CAT Scan - Closed Specialty Diagnoses / Procedures Referred By Radha schaefer Referred To Contact Radiology Diagnoses Cerebral AVM Procedures MRI Brain CHG MRI BRAIN COMBO CHG FUNCTIONAL MRI BRAIN BY PHYS/PSYCH CHG 3D RENDERING W/INTERP & POSTPROCESS SUPERVISION Nenita Hernandez FNP Phone: tel: fax: mailto:[email or web address] Referral ID Status Reason Start Date Expiration Date Visits Re quested Visits Authorized [id number] Closed 12/22/2020 01/10/2021 1 1 Encounter Details Date Type Department Care Team (Late st Contact Info) Description 12/22/2020 Ancillary Orders [facility] [address] [place] [address], 7th Floor, [address] [place] [address] Nenita Hernandez FNP [address] [place] [phone] [email or web address] Cerebral AVM Social History Tobacco Use Types [...] tractography The AVM nidus is surrounded by CUSTOMER ORDERS CLERK and SLF/arcuate fibers as described in the body of the report. The AVM nidus is posterior to the right frontal aslant tract and by at least 1 cm. NOTE: Functional maps and reconstructed white matter tracts are available in the working storage directory of the [employer] system for preoperative review. Please note that [...] AVM nidus. DTI tractography findings: Corticospinal tracts (CUSTOMER ORDERS CLERK): Right CUSTOMER ORDERS CLERK fibers appear focally effaced at the expected location of the right postcentral AVM nidus. Reconstructed CUSTOMER ORDERS CLERK fibers are seen immediately surrounding the AVM [...] AVM nidus. DTI tractography findings: Corticospinal tracts (CUSTOMER ORDERS CLERK): Right CUSTOMER ORDERS CLERK fibers appear focally effaced atthe expected location [...] tractography The AVM nidus is surrounded by CUSTOMER ORDERS CLERK and SLF/arcuate fibers as described inthe body [...] system documented in this encounter Care Teams Valet Manager Relationship Specialty Start Date End Date Jm Heredia MD [address] [place] [address] [place] [address] PCP - General Internal Medicine 10/06/20 documented as of this encounter Additional Source Comments The information contained in this document represents components of the legal health record. It is not the complete legal health record.[facility]
--- OUTSIDE RECORDS SUMMARY | 2025-11-11 16:03 | XMS_ITS | Encounter Summary ---
Author Organization [facility] Address [address] [place] [address] Phone Care Team Providers Care Corporate Meeting Planner Name Role Phone Jm Heredia MD Primary Care Provider Encounter Details Date Type Department Care Team (Late st Contact Info) Description 12/15/2020 Procedure Pass [facility] 3DCTMR MG [address] [place] [address] Social History Tobacco Use Types Packs/Day Years [...] on filedocumented in this encounter Care Teams Corporate Meeting Planner Relationship Specialty Start Date End Date Jm Heredia MD [address] [place] [address] Dr [place] [address] PCP - General Internal Medicine 10/06/20 documented as of this encounter Additional Source Comments The information contained in this document represents components of the legal health record. It is not the complete legal health record.[facility]
--- OUTSIDE RECORDS SUMMARY | 2025-11-11 16:03 | XMS_ITS | Encounter Summary ---
Author Organization [facility] Address [address] [place] [address] Phone Care Team Providers Care Freedom Of Information Officer Name Role Phone Jm Heredia MD Primary Care Provider Encounter Details Date Type Department Care Team (Late st Contact Info) Description 12/01/2020 Procedure Pass [facility] - Peripoerative Interventional Radiology [address] [facility], 4th [place] [address] Social History Tobacco Use Types Packs/Day Years [...] on filedocumented in this encounter Care Teams Freedom Of Information Officer Relationship Specialty Start Date End Date Jm Heredia MD [address] [place] [address] [place] [address] PCP - General Internal Medicine 10/06/20 documented as of this encounter Additional Source Comments The information contained in this document represents components of the legal health record. It is not the complete legal health record.[facility]
--- OUTSIDE RECORDS SUMMARY | 2025-11-11 16:03 | XMS_ITS | Encounter Summary ---
Author Organization [facility] Address [address] [place] [address] Phone Care Team Providers Care Chief Telephone Operator Name Role Phone Jm Heredia MD Primary Care Provider Encounter Details Date Type Department Care Team (Late st Contact Info) Description 11/27/2020 Prep for Surgery [facility] [address] [facility], 7th Floor, [address] [place] [address] Nenita Hernandez FNP [address] [place] [address] [email or web address] Social History Tobacco Use Types Packs/Day Years [...] on filedocumented in this encounter Care Teams Chief Telephone Operator Relationship Specialty Start Date End Date Jm Heredia MD [address] [place] [address] [place] [address] PCP - General Internal Medicine 10/06/20 documented as of this encounter Additional Source Comments The information contained in this document represents components of the legal health record. It is not the complete legal health record.[facility]
--- OUTSIDE RECORDS SUMMARY | 2025-11-11 16:03 | XMS_ITS | Encounter Summary ---
Author Organization [facility] Address [address] [place] [address] Phone Care Team Providers Care Utilization Review Coordinator Name Role Phone Jm Heredia MD Primary Care Provider Encounter Details Date Type Department Care Team (Late st Contact Info) Description 12/22/[address] [facility] [address] [facility], 2nd [place] [address] Social History Tobacco Use Types Packs/Day Years [...] on filedocumented in this encounter Care Teams Utilization Review Coordinator Relationship Specialty Start Date End Date Jm Heredia MD [address] [place] [address] [place] [address] PCP - General Internal Medicine 10/06/20 documented as of this encounter Additional Source Comments The information contained in this document represents components of the legal health record. It is not the complete legal health record.[facility]
--- OUTSIDE RECORDS SUMMARY | 2025-11-11 16:03 | XMS_ITS | Encounter Summary ---
Author Organization [facility] Address [address] [place] [address] Phone Care Team Providers Care Scholarship Counselor Name Role Phone Jm Heredia MD Primary Care Provider Encounter Details Date Type Department Care Team (Late st Contact Info) Description 12/03/2020 Procedure Pass [facility] [address] [facility], 2nd [place] [address] Social History Tobacco Use Types Packs/Day Years [...] on filedocumented in this encounter Care Teams Scholarship Counselor Relationship Specialty Start Date End Date Jm Heredia MD [address] [place] [address] [place] [address] PCP - General Internal Medicine 10/06/20 documented as of this encounter Additional Source Comments The information contained in this document represents components of the legal health record. It is not the complete legal health record.[facility]
== END 2025-11-11 12:12 | disposition home or self-care (01) ==
LOC: HO.HWS 12:00
PROVIDERS: PCP Physician Assistant; Visit Provider Obstetrics & Gynecology
DX: R87.612 Low grade squamous intraepithelial lesion on cytologic smear of cervix (LGSIL) (principal)
CPT/HCPCS: 99213

== ENCOUNTER 2025-11-12 10:02 | Outpatient (AMB) | payer OTHER, SELFPAY ==
--- NOTE | 2025-11-12 10:07 | MHC.OFFVIS ---
Vital Signs 11/12/25 10:09 Height 5 ft 5 in Weight 151 lb 14.376 oz BMI 25.3 BP 120/66 Blood Pressure Location Lt brachial Position Sitting Pulse 70 Pulse Source Pulse Oximeter Pulse Oximetry (%) 100 Oxygen Delivery Method Room Air Intake Visit Reasons: Nontoxic single thyroid nodule Intake Note: NEW Patient presents today to establish care for Nontoxic Single Thyroid Nodule: No acute complaints reported at this time. Thyroid Ultrasound completed on 05/26/2025 Data Systems Analyst Required: No Accompanied by: Self / Same As Patient Allergies No Known Allergies Allergy (Unverified 11/12/25 10:12) Medication List - Last Reconciled 11/12/25 by Richard Mcgovern MD hydroxyzine HCl 25 mg PO BID PRN HPI Comments Details: 55 years old female with past medical history of hyperlipidemia, alcohol use disorder in remission, AVM, thyroid nodules, seen in the office for initial evaluation of thyroid nodule. - Presents for endocrine consultation regarding thyroid monitoring following a previous diagnosis of goiter identified on nuclear medicine testing years ago - Reports a history of goiter discovered on nuclear medicine testing years ago, which has been monitored by primary care physician Dr. Heredia for approximately 25 years with regular blood work surveillance - Denies current symptoms of dysphagia, shortness of breath when supine, or sensation of food getting stuck in the throat - Reports weight gain over the past 10 years, attributed to menopause - Describes longstanding cold intolerance, stating inability to tolerate cold temperatures, which has been present chronically rather than being a new symptom - Reports dry skin requiring daily application of baby oil after showering to prevent flaking, though notes improvement in hair loss symptoms - Previously maintained an active lifestyle with walking four miles three times weekly, but reports significant fatigue and decreased energy levels recently - Sleep quality is reported as good - Past medical history includes arteriovenous malformation in the brain, which was treated with gamma knife radiation therapy in [place] with expected three-year timeframe for shrinkage, though recent MRI showed persistent lesion - Current medications include no specific endocrine therapies mentioned Physical exam: General: Well appearing. NAD. Neck/Thyroid: Thyroid palpable, not enlarged, no nodules. Eyes: No conjunctival injection, not lid lag or proptosis CV: RRR, no murmur. No edema. Resp:Lungs clear to auscultation bilaterally Abdomen: Soft, nontender. nondistended Extremities/Neuro: No weakness or tremor of outstretched hands Laboratory Tests 01/06/21 06/24/21 03/02/22 12:40 10:40 12:42 TSH 0.88 1.16 1.34 Free T4 1.03 1.13 1.26 Laboratory Tests 04/30/25 09:10 TSH 1.03 US thyroid 06/05/25 FINDINGS: SIZE: The right thyroid lobe measures 4.5 x 1.5 x 1.4 cm. The left thyroid lobe measures 4.8 x 1.5 x 1.4 cm. The isthmus measures 1 mm. FLOW: Flow to the gland is normal. ECHOGENICITY: The echotexture of the gland is homogeneous. NODULES: Subcentimeter nodules are noted bilaterally as described below: Nodule #: 1 Location: Right upper pole measuring 6 x 4 x 6 mm. Shape: Wider than tall (0 points) Margins: Ill-defined (0 points) Echotexture: Indeterminate (1 point) Composition: Mixed (1 point) Calcifications: Comet tail (0 points) Total points: 2 TIRADS: TR2: Not suspicious Nodule #: 2 Location: Midportion of the right thyroid lobe measuring 3 x 4 x 3 mm. Shape: Taller than wide (3 points) Margins: Irregular (2 points) Echotexture: Very hypoechoic (3 points) Composition: Solid (2 points) Calcifications: None (0 points) Total points: 10 TIRADS: TR5: Highly suspicious. Nodule #: 3 Location: Midportion of the left thyroid lobe measuring 3 x 2 x 3 mm. Shape: Wider than tall (0 points) Margins: Ill-defined (0 points) Echotexture: Indeterminate (1 point) Composition: Mixed (1 point) Calcifications: Comet tail (0 points) Total points: 2 TIRADS: TR2: Not suspicious IMPRESSION: 3 x 4 x 3 mm highly suspicious nodule in the midportion of the right thyroid lobe. Follow-up is recommended to document stability. [facility] Medical History Thyroid nodule HLD (hyperlipidemia) Status post radiation therapy Cigarette smoker Alcohol use disorder in remission Anxiety Headache AVM (arteriovenous malformation) brain Goiter Surgical History (Updated 11/12/25 @ 10:13 by YOLANDA Levine) H/O colonoscopy S/P Mohs surgery for basal cell carcinoma History of bilateral tubal ligation H/O cone biopsy of cervix S/P tonsillectomy H/O lumbar discectomy S/P radiation therapy > 12 wks ago Family History Mother CAD (coronary artery disease) of artery bypass graft Arterial occlusive disease Diabetes Sister Diabetes Father Metastatic cancer Social History Housing: Apartment Alcohol intake: former Patient Tobacco Use Status: Current everyday Tobacco user Tobacco use type: Cigarette Cigarettes Per Day: 9 Years Smoked: 29 years e-Cigarette/Vaping Use: Never Used service: No Current occupational status: employed 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 Cognitive needs: No Hearing needs: No Vision needs: No Female Reproductive History Menstrual Age of Menarche: 13 Physical Exam Vital Signs: Last Vital Signs Pulse 70 11/12/25 10:09 BP 120/66 11/12/25 10:09 Pulse Ox 100 11/12/25 10:09 Oxygen Delivery Method Room Air 11/12/25 10:09 BMI result Body Mass Index 25.3 Assessment & Plan Assessment & Plan (1) Thyroid nodule: Code(s): E04.1 - Nontoxic single thyroid nodule Category: Medical Plan: Thyroid Nodules with History of Goiter - Assessment includes multiple small thyroid nodules with normal thyroid function and normal gland size on recent ultrasound imaging. The 3 millimeter sub-centimeter nodule is appropriately below the 1 centimeter threshold for biopsy consideration. The previously reported goiter appears to be resolved based on current imaging showing normal gland volume. - Investigations planned include yearly thyroid ultrasound monitoring for at least three years to assess for nodule growth - Follow-up plan includes annual ultrasound surveillance with discontinuation of monitoring if no significant growth occurs over three-year period - Will recommend checking thyroid function tests yearly Additional Notes: - Patient education provided regarding the low cancer risk associated with sub-centimeter thyroid nodules and the rationale for conservative monitoring approach rather than immediate intervention - Patient concerns addressed regarding potential relationship between brain arteriovenous malformation and thyroid findings, with reassurance that AVMs are not typically found in the thyroid gland and would not appear on standard thyroid ultrasound imaging Plan 30 minutes spent reviewing previous records, labs, imaging, education and documenting in the chart Orders: Orders US thyroid 05/15/26 E04.1 - Nontoxic single thyroid nodule TSH reflex Free T4 05/15/26 E04.1 - Nontoxic single thyroid nodule Coding Level of Care Code New Pt Level 3 (59702) Add On Problem Visit Only Diagnoses Thyroid nodule E04.1
[2025-11-12 10:09] VITALS: BP 120/66; PULSE 70; O2SAT 100; BMI 25.3
--- OUTSIDE RECORDS SUMMARY | 2025-11-12 11:00 | XMS_ITS | Encounter Summary ---
Author Organization [facility] Address [address] [place] [address] Phone Care Team Providers Care Rubber Down Name Role Phone Jm Heredia MD Primary Care Provider Encounter Details Date Type Department Care Team (Late st Contact Info) Description 12/15/2020 Procedure Pass [facility] 3DCTMR MG [address] [place] [address] Social History Tobacco Use Types Packs/Day Years [...] on filedocumented in this encounter Care Teams Rubber Down Relationship Specialty Start Date End Date Jm Heredia MD [address] [place] [address] [place] [address] PCP - General Internal Medicine 10/06/20 documented as of this encounter Additional Source Comments The information contained in this document represents components of the legal health record. It is not the complete legal health record.[facility]
--- OUTSIDE RECORDS SUMMARY | 2025-11-12 11:00 | XMS_ITS | Encounter Summary ---
Author Organization [facility] Address [address] [place] [address] Phone Care Team Providers Care Wharf Tender Name Role Phone Jm Heredia MD Primary Care Provider Encounter Details Date Type Department Care Team (Late st Contact Info) Description 12/03/2020 Procedure Pass [facility] [address] [facility], 2nd [place] [address] Social History Tobacco Use Types Packs/Day Years [...] on filedocumented in this encounter Care Teams Wharf Tender Relationship Specialty Start Date End Date Jm Heredia MD [address] [place] [address] [place] [address] PCP - General Internal Medicine 10/06/20 documented as of this encounter Additional Source Comments The information contained in this document represents components of the legal health record. It is not the complete legal health record.[facility]
--- OUTSIDE RECORDS SUMMARY | 2025-11-12 11:00 | XMS_ITS | Encounter Summary ---
Author Organization [facility] Address [address] [place] [address] Phone Care Team Providers Care Manager Spa Name Role Phone Jm Heredia MD Primary Care Provider Encounter Details Date Type Department Care Team (Late st Contact Info) Description 12/01/2020 Procedure Pass [facility] [address] [place] [address] Social History Tobacco Use Types [...] filedocumented in this encounter Care Teams Manager Spa Relationship Specialty Start Date End Date Jm Heredia MD [address] [place] [address] [place] [address] PCP - General Internal Medicine 10/06/20 documented as of this encounter Additional Source Comments The information contained in this document represents components of the legal health record. It is not the complete legal health record.[facility]
--- OUTSIDE RECORDS SUMMARY | 2025-11-12 11:00 | XMS_ITS | Encounter Summary ---
Author Organization [facility] Address [address] [place] [address] Phone Care Team Providers Care Advanced Practice Nurse Psychotherapist Name Role Phone Jm Heredia MD Primary Care Provider Encounter Details Date Type Department Care Team (Late st Contact Info) Description 12/01/2020 Procedure Pass [facility] Imaging - Peripoerative Interventional Radiology [address] [facility], 4th [place] [address] Social History Tobacco Use Types Packs/Day Years [...] on filedocumented in this encounter Care Teams Advanced Practice Nurse Psychotherapist Relationship Specialty Start Date End Date Jm Heredia MD [address] [place] [address] [place] [address] PCP - General Internal Medicine 10/06/20 documented as of this encounter Additional Source Comments The information contained in this document represents components of the legal health record. It is not the complete legal health record.[facility]
--- OUTSIDE RECORDS SUMMARY | 2025-11-12 11:01 | XMS_ITS | Clinical Summary ---
Author Organization [employer] Address [address] [facility] 7t [place] [address] Care Team Providers Care Roller Painter Name Role Phone Unavailable Primary Care Provider Unavailabl e Allergies No known active allergies Medications hydrOXYzine HCl (Atarax) 25 MG tablet Take 25 mg by mouth 2 times daily. Active topiramate (Topamax Sprinkle) 25 MG capsule Take 25 mg by mouth 2 times daily. Active Encounters Date Type Department Care Team Description 08/12/2025 8:00 AM EDT Office Visit [facility] [address] [place] [id number] Ciera Greer from Last 3 Months Social [...] Recently Relevant to Health Maintenance Insurance [address] [place] [id number] [facility] [address] [place] [address] [id number] [place] [id number] [place] [id number] [place] [id number]
--- OUTSIDE RECORDS SUMMARY | 2025-11-12 11:01 | XMS_ITS | Clinical Summary ---
Author Organization [facility] Address [address] [facility] [address] [place] [address] Phone Care Team Providers Care Yardage Control Operator Name Role Phone Jm Heredia MD [...] this topic Medical Devices Implanted Type Area Clinical Courier Device Identifier Shelf Expiration Date Model / Serial / Lot Device Closure Mynxgrip 6-7fr Vascular Femoral Artery Atraumatic Tip Disp - Order In Multiples Of 11 - [id number] Implanted:Qty: 1 on 12/01/2020 by Branden Oglesby MD at [facility] Closure Device Right: [facility] 10/12/2022 [id number] / / [id number] [facility] Care Teams Yardage Control Operator Relationship Specialty Start Date End Date Jm Heredia MD [address] [place] [address] [place] [address] PCP - General Internal Medicine 10/06/20 Additional Source Comments The information contained in this document represents components of the legal health record. It is not the complete legal health record.[facility]
--- OUTSIDE RECORDS SUMMARY | 2025-11-12 11:01 | XMS_ITS | Encounter Summary ---
Author Organization [facility] Address [address] [place] [address] Phone Care Team Providers Care Bristle Machine Operator Name Role Phone Jm Heredia MD Primary Care Provider Reason for Referral * MRI/CAT Scan - Closed Specialty Diagnoses / Procedures Referred By Radha schaefer Referred To Contact Radiology Diagnoses Cerebral AVM Procedures MRI 3D Reconstruction Functional Head Post-Procedure Addon JAYCE 3D RENDERING W/INTERP&POSTPROC DIFF WORK STATION Nenita Hernandez FNP Phone: tel: fax: [email or web address]:[email or web address] Referral ID Status Reason Start Date Expiration Date Visits Re quested Visits Authorized [id number] Closed 12/22/2020 12/22/2020 1 1 Encounter Details Date Type Department Care Team (Late st Contact Info) Description 12/15/2020 Ancillary Orders For Login Purposes Only [address] [facility] Floor 2 [address] [place] [address] Nenita Hernandez FNP [address] [place] [address] [email or web address] Cerebral AVM Social History Tobacco Use Types [...] tractography The AVM nidus is surrounded by REWORK MACHINE OPERATOR and SLF/arcuate fibers as described in the body of the report. The AVM nidus is posterior to the right frontal aslant tract and by at least 1 cm. NOTE: Functional maps and reconstructed white matter tracts are available in the working storage directory of the [employer]) system for preoperative review. Please note that [...] AVM nidus. DTI tractography findings: Corticospinal tracts (REWORK MACHINE OPERATOR): Right REWORK MACHINE OPERATOR fibers appear focally effaced at the expected location of the right postcentral AVM nidus. Reconstructed REWORK MACHINE OPERATOR fibers are seen immediately surrounding [...] AVM nidus. DTI tractography findings: Corticospinal tracts (REWORK MACHINE OPERATOR): Right REWORK MACHINE OPERATOR fibers appear focally effaced atthe [...] tractography The AVM nidus is surrounded by REWORK MACHINE OPERATOR and SLF/arcuate fibers as described [...] system documented in this encounter Care Teams Bristle Machine Operator Relationship Specialty Start Date End Date Jm Heredia MD [address] [place] [address] [place] [address] PCP - General Internal Medicine 10/06/20 documented as of this encounter Additional Source Comments The information contained in this document represents components of the legal health record. It is not the complete legal health record.[facility]
--- OUTSIDE RECORDS SUMMARY | 2025-11-12 11:01 | XMS_ITS | Encounter Summary ---
Author Organization [facility] Address [address] [place] [address] Phone Care Team Providers Care Stunt Driver Name Role Phone Jm Heredia MD Primary Care Provider Encounter Details Date Type Department Care Team (Late st Contact Info) Description 11/27/2020 Prep for Surgery [facility] [address] [facility], 7th Floor, [address] [place] [address] Nenita Hernandez FNP [address] [place] [address] [email or web address] Social History Tobacco Use Types Packs/Day Years [...] on filedocumented in this encounter Care Teams Stunt Driver Relationship Specialty Start Date End Date Jm Heredia MD [address] [place] [address] [place] [address] PCP - General Internal Medicine 10/06/20 documented as of this encounter Additional Source Comments The information contained in this document represents components of the legal health record. It is not the complete legal health record.[facility]
--- OUTSIDE RECORDS SUMMARY | 2025-11-12 11:01 | XMS_ITS | Encounter Summary ---
Author Organization [facility] Address [address] [facility] 7t [place] [address] Care Team Providers Care Honeycomb Blanket Maker Name Role Phone Unavailable Primary Care Provider Unavailabl e Encounter Details Date Type Department Care Team (Latest Contact Info) Description 12/10/2019 Abstract [facility] CONVERSIONS Dental, Provider, DDS Social History Tobacco [...]
--- OUTSIDE RECORDS SUMMARY | 2025-11-12 11:01 | XMS_ITS | Encounter Summary ---
Author Organization [facility] Address [address] [place] [address] Phone Care Team Providers Care Copyright Expert Name Role Phone Jm Heredia MD Primary Care Provider Reason for Referral * MRI/CAT Scan - Closed Specialty Diagnoses / Procedures Referred By Radha schaefer Referred To Contact Radiology Diagnoses Cerebral AVM Procedures MRI Brain CHG MRI BRAIN COMBO CHG FUNCTIONAL MRI BRAIN BY PHYS/PSYCH CHG 3D RENDERING W/INTERP & POSTPROCESS SUPERVISION Nenita Heranndez FNP Phone: tel: fax: mailto:[email or web address] Referral ID Status Reason Start Date Expiration Date Visits Re quested Visits Authorized [id number] Closed 12/22/2020 01/10/2021 1 1 Encounter Details Date Type Department Care Team (Late st Contact Info) Description 12/22/2020 Ancillary Orders [facility] [address] [place] [address], 7th Floor, [address] [place] [address] Nenita Hernandez FNP [address] [place] [id number] [email or web address] Cerebral AVM Social History Tobacco [...] tractography The AVM nidus is surrounded by PRESS TECHNICIAN and SLF/arcuate fibers as described in the body of the report. The AVM nidus is posterior to the right frontal aslant tract and by at least 1 cm. NOTE: Functional maps and reconstructed white matter tracts are available in the working storage directory of the [employer] system for preoperative review. Please note that [...] AVM nidus. DTI tractography findings: Corticospinal tracts (PRESS TECHNICIAN): Right PRESS TECHNICIAN fibers appear focally effaced at the expected location of the right postcentral AVM nidus. Reconstructed PRESS TECHNICIAN fibers are seen immediately surrounding the AVM [...] AVM nidus. DTI tractography findings: Corticospinal tracts (PRESS TECHNICIAN): Right PRESS TECHNICIAN fibers appear focally effaced atthe expected location [...] tractography The AVM nidus is surrounded by PRESS TECHNICIAN and SLF/arcuate fibers as described inthe body [...] system documented in this encounter Care Teams Copyright Expert Relationship Specialty Start Date End Date Jm Heredia MD [address] [place] [address] [place] [address] PCP - General Internal Medicine 10/06/20 documented as of this encounter Additional Source Comments The information contained in this document represents components of the legal health record. It is not the complete legal health record.[facility]
--- OUTSIDE RECORDS SUMMARY | 2025-11-12 11:01 | XMS_ITS | Encounter Summary ---
Author Organization [facility] Address [address] [place] [address] Phone Care Team Providers Care Manager Lsw Name Role Phone Jm Heredia MD Primary Care Provider Encounter Details Date Type Department Care Team (Late st Contact Info) Description 12/22/2020 Procedure Pass [facility], [facility] 2 [address] [facility], 2nd [place] [address] Social History Tobacco Use Types Packs/Day Years [...] filedocumented in this encounter Care Teams Manager Lsw Relationship Specialty Start Date End Date Jm Heredia MD [address] [place] [address] [place] [address] PCP - General Internal Medicine 10/06/20 documented as of this encounter Additional Source Comments The information contained in this document represents components of the legal health record. It is not the complete legal health record.[facility]
== END 2025-11-12 10:34 | disposition home or self-care (01) ==
LOC: HO.ENCR 10:03
PROVIDERS: PCP Physician Assistant; Visit Provider Student in an Organized Health Care Education/Training Program
DX: E04.1 Nontoxic single thyroid nodule (principal)
CPT/HCPCS: 99203